=== PATIENT | female | born 1950 | race Caucasian/White ===

== ENCOUNTER 2021-07-05 15:16 | Inpatient (IN) | payer OTHER, MEDICARE ==
[~2021-07-05] VITALS: Ht 157.5 cm; Wt 81.8 kg
[2021-07-05] MEDS ORDERED: OMEP10CASR PO (15:23)
[2021-07-05] MEDS ORDERED: FOSA70TA PO (15:23)
[2021-07-05] MEDS ORDERED: CHLO125TA (15:23)
--- NOTE | 2021-07-05 16:09 | REP ---
INDICATION: fell. COMPARISON: Right tibia fibula today. TECHNIQUE: Five views provided. FINDINGS: A vertically oriented intra-articular fracture extending from the proximal metadiaphysis of the tibia into the lateral tibial plateau at the level of the lateral tibial spine. There is a suprapatellar effusion. I do not see narrowing of any of the joint compartments. There are marginal osteophytes at all joint margins. No medial compartment fracture. Femoral condyles and patella show no fracture. Proximal fibula intact. IMPRESSION: 1. Vertically oriented fracture through the proximal tibial metadiaphysis to the lateral tibial plateau just lateral to the lateral tibial spine. There is a joint effusion, some distraction of the major fragments but no a definite calcific loose body, subluxation or dislocation. Proximal fibula, distal femur and patella intact. <Electronically signed by Lucian Barlow > 07/05/21 [id number]
--- NOTE | 2021-07-05 16:11 | REP ---
INDICATION: fell. COMPARISON: Right knee this date. TECHNIQUE: Four views FINDINGS: There is a fracture vertically oriented through the proximal tibial metadiaphysis to the lateral tibial plateau just lateral to the lateral tibial spine some distraction of the fragments noted. There is a joint effusion. No definite loose body. No joint space narrowing. Tricompartment degenerative spurring noted. The fibula is without a fracture remainder of the tibia shows no fracture of its proximal or distal shaft ankle grossly preserved with some degenerative changes in the posterior subtalar joint and anterior margin of the ankle. IMPRESSION: 1. Fracture vertically oriented through the proximal tibial metadiaphysis to the lateral tibial plateau, just lateral to the lateral tibial spine. Joint effusion. Some distraction of fragments but no loose body, other fractured bones, subluxation or dislocation. <Electronically signed by Lucian Barlow > 07/05/21 [id number]
[2021-07-05] MEDS ORDERED: MORPHINE 4 MG/ML 1ML VIAL/SYRINGE (J2270) IV ONE (16:35)
[2021-07-05] MEDS ORDERED: ONDANSETRON 4MG/2ML VIAL IV PRN (17:30)
[2021-07-05] MEDS ORDERED: MORPHINE 2 MG/ML 1ML VIAL (J2270) IV PRN (17:30)
--- NOTE | 2021-07-05 17:45 | HPEPDOC ---
[facility] Medical History & Physical Date of Admission Jul 05, 2021 Date of Service: Jul 05, 2021 Attending Physician: ANNA DIAZ DO History and Physical CHIEF COMPLAINT: Right knee pain HISTORY OF PRESENT ILLNESS: Patient is a 71-year-old female presented to the emergency department after falling at work and hurting her right knee. 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 Patient felt 2 pops in her right knee when she fell. Patient denies hitting her knee but her knee began to swell up and she was unable to get up due to the pain. Patient states she crawled out into the hallway and was able to get help. Patient then reported that emergency department where x-rays show the patient had a tibial plateau fracture. Patient was in her usual state of health prior to the fall and states that she did not have any head injury for the fall. Patient states that the pain is constant and the swelling has become worse since she initially came to the hospital. PAST MEDICAL HISTORY: 1. Osteoporosis. 2. GERD. 3. Patient states she has a remote history of hypertension but checks her blood pressure every day and it is normal PAST SURGICAL HISTORY: 1. Left ankle fracture surgery 2. Splenectomy SOCIAL HISTORY: Patient denies smoking cigarettes, doing illicit drugs, or drink alcohol FAMILY HISTORY: Patient denies any family history on her side of the family. Patient denies any history of hypertension diabetes or heart disease ALLERGIES: Please see below. REVIEW OF SYSTEMS: General: Patient denies fevers HEENT: Patient denies headaches Cardiovascular: Patient denies chest pain Respiratory: Patient denies shortness of breath, cough GI: Patient denies abdominal pain, nausea, vomiting, diarrhea : Patient denies increased frequency or pain with urination Extremities: Patient reports pain swelling right knee as above Neurological: Patient denies numbness or tingling in legs Skin: Patient denies any new rashes or lesions. Hematologic: Patient denies any easy bruising. Lymphatic: Patient denies any lumps lumps or bumps in neck, axilla, or groin HOME MEDICATIONS: Please see below. PHYSICAL EXAMINATION: VITAL SIGNS: Temperature 95.8, pulse 62, respiratory rate 18, blood pressure 122/58, pulse oximetry 99% on room air. General: Alert and oriented female patient who was laying on the stretcher when I walked in. Patient not appear to be in any acute distress. HEENT: Normocephalic, atraumatic, moist mucous membranes. Neck: No lymphadenopathy or thyromegaly Cardiac: Regular rate and rhythm, no murmurs, normal S1, normal S2 Pulm: Clear to auscultation bilaterally. No wheezes, rhonchi, rales Abd: Nondistended, nontender to palpation, normal bowel sounds Ext: Patient in knee immobilizer in place. Patient had swelling over the right knee. No erythema, there is tenderness to touch over the distal portion of the right knee joint. Patient has intense pain to moving her leg. Patient is neurovascularly intact distal to the injury Neuro: Patient was able to move all 4 extremities on command and reported equal sensation light touch in all 4 extremities. Skin: Skin of the head, neck, upper and lower extremities was examined did not show any evidence of rash or wounds. LABORATORY DATA: See below. IMAGING: X-ray of the right knee performed on 07/05/2021 is reported to show vertically oriented fracture through the proximal tibial metadiaphysis to the lateral tibial plateau just lateral to the lateral tibial spine. There is a joint effusion, some distraction of the major fragments but no definite calcific loose body, subluxation or dislocation. Proximal fibula, distal femur and patella intact. Tibia and fibular x-ray of the right leg performed on 07/05/2021 is reported to show fracture vertically oriented for the proximal tibial metadiaphysis to the lateral tibial plateau, just lateral to the lateral tibial spine. Joint effusion. Some distraction fragments no loose body, other fractured bones, subluxation or dislocation. MICROBIOLOGY: Please see below. ASSESSMENT: 71-year-old female presented to hospital after falling and fracturing her right tibial plateau. . PLAN: 1. Right tibial plateau fracture. Orthopedics will see the patient later today and determine the best course of action. CT of the knee is pending at the time of this dictation. Patient will be held n.p.o. We will await further laboratory studies that have yet to be performed although in review of laboratory studies from February, patient did have a leukocytosis but other laboratory studies were within normal limits. We will see what they are today. 2. GERD. Patient takes omeprazole at home. We will continue this. 3. History of hypertension. Patient states she takes her blood pressure every day at home and it has been normal. Patient states she was on medication in the past but this was stopped as her blood pressure was normal. Patient states her history of hypertension was due to stress. 4. History of acquired asplenia. Patient had a splenectomy but states she has not received any vaccines that are recommended. I did recommend that she gets vaccines once she is discharged in the hospital. 5. DVT prophylaxis: Mechanical due to impending surgery 6. CODE STATUS: Full code Disposition: Patient be admitted for observation and can most likely be discharged once surgery has been completed. I do expect the patient to be discharged after less than 1 midnight stay. Vital Signs Vital Signs Date Time Temp Pulse Resp B/P (MAP) Pulse Ox O2 Delivery O2 Flow Rate FiO2 07/05/21 17:04 07/05/21 16:59 18 99 Room Air 07/05/21 15:17 95.8 62 Home Medications Scheduled Alendronate Sodium (Fosamax) 70 Mg Tablet, 1 TAB PO Q7D in the morning, at least 30 minutes before the first food, beverage, or medication of the day Omeprazole (Omeprazole) 10 Mg Capsule.dr, 20 MG PO DAILY Allergies Coded Allergies: codeine (Verified Allergy, Unknown, 07/05/21) A-FIB/CHADSVASC A-FIB History Current/History of A-Fib/PAF?: No ANNA DIAZ DO Jul 05, 2021 17:45
--- NOTE | 2021-07-05 17:47 | REPVR ---
PROCEDURE INFORMATION: Exam: CT Right Lower Extremity Without Contrast, Knee Exam date and time: 07/05/2021 5:23 PM Age: 71 years old Clinical indication: Injury or trauma; Fall; Fracture, traumatic; Other: Plateau FX; Patella or knee; Right; Additional info: Plateau FX 3d recon please TECHNIQUE: Imaging protocol: CT of the Right lower extremity without contrast was performed. Exam focused on the knee. Axial, coronal and sagittal reformatted images were created and reviewed. 3D-renderin-D post-processed images and/or MIPs were created and reviewed. Radiation optimization: All CT scans at this facility use at least one of these dose optimization techniques: automated exposure control; mA and/or kV adjustment per patient size (includes targeted exams where dose is matched to clinical indication); or iterative reconstruction. COMPARISON: CR Knee, complete RIGHT 07/05/2021 3:41 PM FINDINGS: Bones/joints: Comminuted, displaced fracture along the posteromedial aspect of the lateral tibial plateau, extending to the lateral tibial spine. Comminuted, predominantly sagittal plane component extending to the proximal tibial metaphysis. Approximately 7 mm depression along the articular surface of the lateral tibial plateau. No dislocation. Mild patellofemoral osteoarthrosis. Large lipohemarthrosis. Soft tissues: Mild anterior soft tissue swelling. IMPRESSION: 1. Depressed fracture of the lateral tibial plateau, as described above. 2. Additional findings, as above. Electronically signed by: Colt Lee On 07/05/2021 17:47:18 PM
[2021-07-05 18:10] LABS: BASO # 0.1 10^3/uL (0.0-0.2); BASO % 0.4 % (0.0-1.0); EOS % 0.1 % (0.0-3.0); HEMATOCRIT 47.4 % (36.0-47.0); HEMOGLOBIN 15.4 g/dl (12.0-15.5); LYMPH # 2.4 10^3/uL (1.5-5.0); LYMPH % 11.5 % (24.0-44.0); MEAN CORPUSCULAR HEMOGLOBIN 33.6 pg (27.0-33.0); MEAN CORPUSCULAR HGB CONC 32.5 g/dl (32.0-36.5); MEAN CORPUSCULAR VOLUME 103.3 fl (80.0-96.0); MONO % 4.7 % (2.0-8.0); NEUTROPHILS # 17.6 10^3/uL (1.5-8.5); NEUTROPHILS % 82.8 % (36.0-66.0); PLATELET COUNT, AUTOMATED 734 10^3/uL (150-450); RED BLOOD COUNT 4.59 10^6/uL (4.00-5.40); WHITE BLOOD COUNT 21.3 10^3/uL (4.0-10.0)
[2021-07-05 19:20] LABS: RSV AMPLIFICATION NEGATIVE (NEGATIVE)
[2021-07-05 20:20] VITALS: BP 131/83
[2021-07-05] MEDS: MORPHINE 2 MG/ML 1ML VIAL (J2270) IV PRN (20:39)
[2021-07-05] MEDS ORDERED: OMEP1CAP73 PO (21:05)
[2021-07-05] MEDS ORDERED: HOME MED LIST COMPLETE! XX SCH (21:05)
[2021-07-05] MEDS ORDERED: FOLI1TAB11 PO (21:05)
[2021-07-05] MEDS ORDERED: D5W/0.45% SODIUM CHLORIDE 1,000 ML IV SCH (21:10)
[2021-07-06] MEDS: ACETAMINOPHEN TAB 650MG DOSE (2X325MG) PO PRN ×5 (00:56→21:19)
[2021-07-06] MEDS: MORPHINE 2 MG/ML 1ML VIAL (J2270) IV PRN ×5 (00:56→21:19)
[2021-07-06 06:00] VITALS: BP 138/79
[2021-07-06 07:11] LABS: BLOOD UREA NITROGEN 13 MG/DL (7-18); CARBON DIOXIDE LEVEL 28 MEQ/L (21-32); CHLORIDE LEVEL 108 MEQ/L (98-107); CREATININE FOR GFR 0.79 MG/DL (0.55-1.30); GLOMERULAR FILTRATION RATE > 60.0 (>45); GLUCOSE, FASTING 114 MG/DL (70-100); POTASSIUM SERUM 4.4 MEQ/L (3.5-5.1); SODIUM LEVEL 140 MEQ/L (136-145)
[2021-07-06 07:12] LABS: CALCIUM LEVEL 10.3 MG/DL (8.8-10.2); MAGNESIUM LEVEL 2.4 MG/DL (1.8-2.4)
[2021-07-06 07:19] LABS: HEMATOCRIT 42.8 % (36.0-47.0); HEMOGLOBIN 14.1 g/dl (12.0-15.5); MEAN CORPUSCULAR HEMOGLOBIN 33.7 pg (27.0-33.0); MEAN CORPUSCULAR HGB CONC 32.9 g/dl (32.0-36.5); MEAN CORPUSCULAR VOLUME 102.4 fl (80.0-96.0); PLATELET COUNT, AUTOMATED 658 10^3/uL (150-450); RED BLOOD COUNT 4.18 10^6/uL (4.00-5.40); WHITE BLOOD COUNT 14.3 10^3/uL (4.0-10.0)
--- NOTE | 2021-07-06 08:53 | CR ---
ER CONSULTATION DATE: 07/05/2021 TIME: 6 p.m. CONSULTING SERVICE: Orthopedic Surgery CONSULTING PHYSICIAN: JITENDRA MAYERS MD HISTORY OF PRESENT ILLNESS: This is a 71-year-old female with a right posterolateral tibial plateau fracture sustained after a ground level fall while she was at work. Patient presented with right knee pain, inability to ambulate. Orthopedic Surgery was consulted for further evaluation and treatment. PAST MEDICAL HISTORY: 1. Osteoporosis. 2. GERD. 3. Hypertension. PAST SURGICAL HISTORY: 1. Left ankle fracture ORIF. 2. Splenectomy. SOCIAL HISTORY: Denies smoking cigarettes, IV drugs or drinking alcohol. FAMILY HISTORY: She is a mother and and takes care of a 9-year-old child and a chronically ill . Denies a history of hypertension, diabetes or heart disease. ALLERGIES: Please see Internal Medicine note. REVIEW OF SYSTEMS: A 14 point review of systems was negative unless otherwise described in the HPI above. PHYSICAL EXAMINATION: Alert and oriented to person, time and place. Right knee demonstrates some mild swelling and tenderness to palpation. She was otherwise neurovascularly intact to the right lower extremity. She had no breaks in the skin and pain with axial load. She had 5/5 motor strength in the EHL, FHL, tibialis anterior, gastrocnemius and peroneal musculature. Sensation intact to light touch to the deep and superficial peroneal, sural saphenous and tibial nerve distributions. She had palpable dorsalis pedis and posterior tibial arterial pulse, with brisk capillary refill of the digits. RADIOGRAPHS: Radiographs demonstrate a posterolateral column fracture of the tibial plateau with impaction over 1 cm about the posterolateral aspect. There is also a sagittal split on cross-sectional imaging CT scan. The CT scan demonstrates a posterolateral tibial plateau fracture with over 1 cm depression on the posterolateral aspect of the sagittal split exiting the posterior cortex with plateau widening. IMPRESSION: This is a 71-year-old female with the aforementioned injury which will likely require open reduction internal fixation. PLAN: At this point in time, the patient was admitted for pain control and likely operative intervention. The patient's tibial plateau fracture will likely need to be performed within 10 to 14 days. At this point in time, she has been placed in a knee immobilizer and elevation of the right lower extremity. The patient is candidate for knee spanning external fixation versus open reduction internal fixation. Given the location of the fracture, this may require a posterior approach to the right knee which will require a strong vascular surgeon presence onsite at the hospital. Given the tenuous vascular surgeon situation at the [facility], I will have to determine if this is an appropriate surgery to be performed at the [facility] at this point in time. I will contact the vascular surgeon service to see if they would be available during the possible surgery date if definitive fixation is performed at this institution. She may also be a candidate for transfer as the [facility] may not be equipped to deal with a difficult approach requiring onsite vascular surgeon presence. Further details will emerge in the next 24 hours as I discussed the case with my trauma orthopedic colleagues and the [facility].
[2021-07-06] MEDS: OMEPRAZOLE 20 MG CAP PO SCH (09:13)
[2021-07-06 13:58] VITALS: BP 122/70
--- NOTE | 2021-07-06 18:04 | IPNPDOC ---
Text Note Date of Service The patient was seen on 07/06/21. NOTE Subjective: Patient is 71-year-old female presented the emergency department after falling and fracturing her right tibial plateau. Patient states that she is still in pain. Patient is doing okay with the knee immobilizer. Patient states that she was able to eat this morning and was feeling little bit better. After that. Patient denies any other complaints at this time. Review of systems: General: Patient denies fevers HEENT: Patient denies headaches Cardiovascular: Patient denies chest pain Respiratory: Patient denies shortness of breath, cough GI: Patient denies abdominal pain, nausea, vomiting, diarrhea : Patient denies increased frequency or pain with urination Extremities: Patient reports pain in right knee as above Neurological: Patient denies numbness or tingling in legs Physical exam: Vitals: See below General: Alert and oriented female patient who was laying in bed when I walked in. Patient not appear to be in any acute distress. HEENT: Normocephalic, atraumatic, moist mucous membranes. Neck: No lymphadenopathy or thyromegaly Cardiac: Regular rate and rhythm, no murmurs, normal S1, normal S2 Pulm: Clear to auscultation bilaterally. No wheezes, rhonchi, rales Abd: Nondistended, nontender to palpation, normal bowel sounds Ext: No edema bilateral lower extremities. Patient is neurovascularly intact distal to the right knee injury. There is pain to palpation of the right knee. Labs: See below Imaging: CT of the right knee without contrast performed on 07/05/2021 was reported to show comminuted, displaced fracture along the posterior medial aspect of the lateral tibial plateau, extending to the lateral tibial spine. Comminuted, predominantly sagittal plane component extending to the proximal tibial metaphysis. Approximately 7 mm depression along the articular surface of the lateral tibial plateau. No dislocation. Mild patellofemoral osteoarthrosis. Assessment/plan: 71-year-old female presented to hospital after falling and fracturing her right tibial plateau 1. Right tibial plateau fracture. Orthopedics saw the patient and is still in the process of figuring out exactly what surgery will need to be performed and if the surgery can be performed at [facility]. We should know more tomorrow morning. Continue with pain control. 2. GERD. Patient takes omeprazole at home. Continue. 3. History of hypertension. Normotensive here. 4. History of acquired asplenia. Patient had a splenectomy but states she has not received any vaccinations that are recommended. I did recommend the patient get these vaccines once discharged in the hospital. DVT Prophylaxis: Mechanical Disposition: Pending surgery VS,Fishbone, I+O VS, Fishbone, I+O Laboratory Tests 07/06/21 06:39 Vital Signs Date Time Temp Pulse Resp B/P (MAP) Pulse Ox O2 Delivery O2 Flow Rate FiO2 07/06/21 16:12 18 07/06/21 16:02 Room Air 07/06/21 13:58 97.5 64 122/70 (87) 93 I&O- Last 24 Hours up to 6 AM 07/06/21 06:00 Intake Total 0 ml Output Total 0 ml Balance 0 ml ANNA DIAZ DO Jul 06, 2021 18:04
[2021-07-06 22:00] VITALS: BP 118/63
[2021-07-07] MEDS: MORPHINE 2 MG/ML 1ML VIAL (J2270) IV PRN ×2 (02:03→07:36)
[2021-07-07 06:00] VITALS: BP 123/73
[2021-07-07] MEDS: OMEPRAZOLE 20 MG CAP PO SCH (07:36)
[2021-07-07] MEDS: ACETAMINOPHEN TAB 650MG DOSE (2X325MG) PO PRN ×2 (07:36→21:13)
[2021-07-07] MEDS ORDERED: NORCO, ANEXSIA 5/325MG TABLET (HYDROcodone/ACETAMINOPHEN) PO PRN (08:05)
[2021-07-07] MEDS: DOCUSATE SODIUM 100MG CAPSULE PO SCH ×2 (08:54→20:33)
--- NOTE | 2021-07-07 12:26 | IPNPDOC ---
Text Note Date of Service The patient was seen on 07/07/21. NOTE Patient is resting in bed. States she is still having pain but it has improved since being switched to Percocet. She states that her immobilizer feels a little loose. The proximal end of the immobilize was snugged which helped to lessen her pain. Denies chest pain or shortness of breath. NVI to light touch to right foot, able to move ankle and toes. Palpable DP and PT. Overall she is doing well and is eager to have her surgery. VS,Fishbone, I+O VS, Fishbone, I+O Vital Signs Date Time Temp Pulse Resp B/P (MAP) Pulse Ox O2 Delivery O2 Flow Rate FiO2 07/07/21 07:36 17 07/07/21 06:00 98.7 77 123/73 (90) 94 Room Air I&O- Last 24 Hours up to 6 AM 07/07/21 06:00 Intake Total 2180 ml Balance 2180 ml LUIS FERNANDO BERRIOS Jul 07, 2021 12:22
[2021-07-07] MEDS: NORCO, ANEXSIA 5/325MG TABLET (HYDROcodone/ACETAMINOPHEN) PO PRN ×2 (12:27→18:49)
--- NOTE | 2021-07-07 13:16 | IPNPDOC ---
Text Note Date of Service The patient was seen on 07/07/21. NOTE Subjective: Patient is a 71-year-old female who presented to the emergency department after falling and fracturing her right tibial plateau. Patient states that she is still in pain but is doing okay with a knee immobilizer. Patient states he was able to eat this morning feeling little bit better. Patient says that the morphine does help but it does not last that long. Patient is eager to have her surgery performed. Review of systems: General: Patient denies fevers HEENT: Patient denies headaches Cardiovascular: Patient denies chest pain Respiratory: Patient denies shortness of breath, cough GI: Patient denies abdominal pain, nausea, vomiting, diarrhea : Patient denies increased frequency or pain with urination Extremities: Patient ports pain in the right knee as above Neurological: Patient denies numbness or tingling in legs Physical exam: Vitals: See below General: Alert and oriented female patient who was laying in bed when I walked in. Patient did not appear to be in any acute distress. HEENT: Normocephalic, atraumatic, moist mucous membranes. Neck: No lymphadenopathy or thyromegaly Cardiac: Regular rate and rhythm, no murmurs, normal S1, normal S2 Pulm: Clear to auscultation bilaterally. No wheezes, rhonchi, rales Abd: Nondistended, nontender to palpation, normal bowel sounds Ext: No edema bilateral lower extremities. Pain over the right knee joint. Neurovascularly intact distal to the right knee injury. Labs: See below Imaging: No new imaging is been performed Assessment/plan: 71-year-old female presented to hospital with the following fracturing her right tibial plateau. 1. Right tibial plateau fracture. Orthopedics saw the patient was still in the process of figuring out when exactly what surgery would be. It does appear that the surgery may be on Sunday at [facility]. Continue pain control. Pain control has been switched from IV morphine to p.o. Percocet at this time. 2. GERD. Patient takes metoprolol at home. We will continue this. 3. History of hypertension. Continue home amlodipine. 4. History of acquired asplenia. Patient had a splenectomy but she states she has not received any vaccinations that are recommended. I did recommend the patient receive these vaccines when she is discharged in the hospital and did offer that were given before she is discharged. DVT Prophylaxis: Mechanical Disposition: Pending surgery VS,Fishbone, I+O VS, Fishbone, I+O Vital Signs Date Time Temp Pulse Resp B/P (MAP) Pulse Ox O2 Delivery O2 Flow Rate FiO2 07/07/21 12:57 17 07/07/21 06:00 98.7 77 123/73 (90) 94 Room Air I&O- Last 24 Hours up to 6 AM 07/07/21 06:00 Intake Total 2180 ml Balance 2180 ml ANNA DIAZ DO Jul 07, 2021 13:16
[2021-07-07 14:00] VITALS: BP 102/56
[2021-07-07 22:00] VITALS: BP 126/69
[2021-07-08] MEDS: NORCO, ANEXSIA 5/325MG TABLET (HYDROcodone/ACETAMINOPHEN) PO PRN ×4 (00:52→20:00)
[2021-07-08 04:18] VITALS: BP 134/83
[2021-07-08 06:34] LABS: MEAN CORPUSCULAR HEMOGLOBIN 33.8 pg (27.0-33.0); MEAN CORPUSCULAR HGB CONC 32.6 g/dl (32.0-36.5); MEAN CORPUSCULAR VOLUME 103.9 fl (80.0-96.0); PLATELET COUNT, AUTOMATED 620 10^3/uL (150-450); RED BLOOD COUNT 4.14 10^6/uL (4.00-5.40); WHITE BLOOD COUNT 12.8 10^3/uL (4.0-10.0)
[2021-07-08 06:58] LABS: BLOOD UREA NITROGEN 14 MG/DL (7-18); CALCIUM LEVEL 10.2 MG/DL (8.8-10.2); CARBON DIOXIDE LEVEL 31 MEQ/L (21-32); CHLORIDE LEVEL 105 MEQ/L (98-107); CREATININE FOR GFR 0.92 MG/DL (0.55-1.30); GLOMERULAR FILTRATION RATE > 60.0 (>45); GLUCOSE, FASTING 100 MG/DL (70-100); MAGNESIUM LEVEL 2.4 MG/DL (1.8-2.4); SODIUM LEVEL 140 MEQ/L (136-145)
[2021-07-08] MEDS: OMEPRAZOLE 20 MG CAP PO SCH (08:02)
[2021-07-08] MEDS: DOCUSATE SODIUM 100MG CAPSULE PO SCH ×2 (08:03→21:14)
[2021-07-08 14:00] VITALS: BP 144/60
--- NOTE | 2021-07-08 17:33 | IPNPDOC ---
Text Note Date of Service The patient was seen on 07/08/21. NOTE Subjective: Patient is a 71-year-old female presented the emergency department for falling and fracturing her right tibial plateau. Patient is still in pain but the hydrocodone is doing better. Patient is also doing okay with a knee immobilizer. Patient will be having her surgery performed tomorrow and is eager to have her surgery done. Review of systems: General: Patient denies fevers HEENT: Patient denies headaches Cardiovascular: Patient denies chest pain Respiratory: Patient denies shortness of breath, cough GI: Patient denies abdominal pain, nausea, vomiting, diarrhea : Patient denies increased frequency or pain with urination Extremities: Patient reports pain in right leg as above Neurological: Patient denies numbness or tingling in legs Physical exam: Vitals: See below General: Alert and oriented female patient who was laying in bed when I walked i n. Patient not appear to be in any acute distress. HEENT: Normocephalic, atraumatic, moist mucous membranes. Neck: No lymphadenopathy or thyromegaly Cardiac: Regular rate and rhythm, no murmurs, normal S1, normal S2 Pulm: Clear to auscultation bilaterally. No wheezes, rhonchi, rales Abd: Nondistended, nontender to palpation, normal bowel sounds Ext: No edema bilateral lower extremities, minimal swelling over the right knee, there is pain to palpation over the right knee. Neurovascularly intact distal to the right knee injury. Labs: See below Imaging: No new imaging is been performed Assessment/plan: 71-year-old female presented to the hospital with a tibial plateau fracture on the right side. 1. Right tibial plateau fracture. Orthopedic saw the patient and will be performing surgery tomorrow to correct the fracture. Once patient works from PT, patient be discharged after he clears PT. 2. GERD. Takes omeprazole at home. Continue this. 3. History of hypertension. Continue amlodipine. 4. History of acquired asplenia. Patient has had a splenectomy but states she has not received any vaccinations that are recommended. I did recommend the patient receive these vaccines when she is discharged from the hospital or we can give them before she is discharged. DVT Prophylaxis: Mechanical due to pending surgery Disposition: Pending surgical procedure and clearance from PT after surgery. VS,Fishbone, I+O VS, Fishbone, I+O Laboratory Tests 07/08/21 06:16 Vital Signs Date Time Temp Pulse Resp B/P (MAP) Pulse Ox O2 Delivery O2 Flow Rate FiO2 07/08/21 14:39 16 Room Air 07/08/21 14:00 98.2 76 144/60 (60) 98 I&O- Last 24 Hours up to 6 AM 07/08/21 06:00 Intake Total 1320 ml Balance 1320 ml ANNA DIAZ DO Jul 08, 2021 17:33
[2021-07-08 21:56] VITALS: BP 124/75
[2021-07-09] VITALS (7 sets, daily range): BP systolic 123–157; BP diastolic 75–83
[2021-07-09] MEDS: NORCO, ANEXSIA 5/325MG TABLET (HYDROcodone/ACETAMINOPHEN) PO PRN ×2 (02:43→20:02)
[2021-07-09] MEDS ORDERED: ROCURONIUM BROMIDE 50 MG/5 ML VIAL As Ordered ONE ×2 (07:46→12:48)
[2021-07-09] MEDS ORDERED: propofoL 200 MG/20 ML VIAL As Ordered ONE (07:46)
[2021-07-09] MEDS ORDERED: LIDOCAINE 2% 100MG/5ML SDV (FOR ANES.) As Ordered ONE (07:46)
[2021-07-09] MEDS ORDERED: MIDAZOLAM INJ 2MG/2ML VIAL (J2250 PER 1MG) As Ordered ONE (07:47)
[2021-07-09] MEDS ORDERED: fentaNYL 250 MCG/5 ML INJECTION (J3010) As Ordered ONE (07:47)
[2021-07-09] MEDS ORDERED: ceFAZolin 2 GM/D5W 50 ML IV BAG (J0690 PER 500MG) As Ordered ONE (08:18)
[2021-07-09] MEDS ORDERED: TRANEXAMIC ACID 100 MG/ML 10ML VIAL As Ordered ONE ×2 (08:19→14:23)
[2021-07-09 08:26] LABS: HEMATOCRIT 41.7 % (36.0-47.0); HEMOGLOBIN 13.5 g/dl (12.0-15.5); MEAN CORPUSCULAR HEMOGLOBIN 33.7 pg (27.0-33.0); MEAN CORPUSCULAR HGB CONC 32.4 g/dl (32.0-36.5); PLATELET COUNT, AUTOMATED 640 10^3/uL (150-450); RED BLOOD COUNT 4.01 10^6/uL (4.00-5.40); WHITE BLOOD COUNT 12.3 10^3/uL (4.0-10.0)
[2021-07-09 08:52] LABS: BLOOD UREA NITROGEN 15 MG/DL (7-18); CALCIUM LEVEL 10.3 MG/DL (8.8-10.2); CARBON DIOXIDE LEVEL 33 MEQ/L (21-32); CHLORIDE LEVEL 106 MEQ/L (98-107); CREATININE FOR GFR 0.82 MG/DL (0.55-1.30); GLOMERULAR FILTRATION RATE > 60.0 (>45); GLUCOSE, FASTING 85 MG/DL (70-100); MAGNESIUM LEVEL 2.3 MG/DL (1.8-2.4); POTASSIUM SERUM 4.7 MEQ/L (3.5-5.1); SODIUM LEVEL 141 MEQ/L (136-145)
[2021-07-09] MEDS: DOCUSATE SODIUM 100MG CAPSULE PO SCH ×2 (09:00→20:02)
[2021-07-09] MEDS: OMEPRAZOLE 20 MG CAP PO SCH (09:00)
[2021-07-09] MEDS ORDERED: HYDROmorphone HCL 2 MG/ML 1ML VIAL As Ordered ONE (11:54)
[2021-07-09] MEDS ORDERED: LABETALOL 100MG/20ML VIAL As Ordered ONE (12:06)
[2021-07-09] MEDS ORDERED: VANCOMYCIN 1000MG/20ML VIAL As Ordered ONE (12:30)
--- NOTE | 2021-07-09 14:08 | IPNPDOC ---
Text Note Date of Service The patient was seen on 07/09/21. NOTE Subjective: Patient is a 71-year-old female presented the emergency department for falling and fracturing her right tibial plateau. Patient is still in pain but the hydrocodone is doing better. Patient is also doing okay with knee immobilizer. Patient is going down for surgery later on today. Patient is feeling otherwise well today. Review of systems: General: Patient denies fevers HEENT: Patient denies headaches Cardiovascular: Patient denies chest pain Respiratory: Patient denies shortness of breath, cough GI: Patient denies abdominal pain, nausea, vomiting, diarrhea : Patient denies increased frequency or pain with urination Extremities: Patient denies swelling or pain in extremities Neurological: Patient denies numbness or tingling in legs Physical exam: Vitals: See below General: Alert and oriented female patient who was laying in bed when I walked in. Patient not appear to be in any acute distress. HEENT: Normocephalic, atraumatic, moist mucous membranes. Neck: No lymphadenopathy or thyromegaly Cardiac: Regular rate and rhythm, no murmurs, normal S1, normal S2 Pulm: Clear to auscultation bilaterally. No wheezes, rhonchi, rales Abd: Nondistended, nontender to palpation, normal bowel sounds Ext: No edema bilateral lower extremities, minimal swelling over the right knee, there is pain to palpation over the right knee. Neurovascularly intact distal to the right knee injury Labs: See below Imaging: No new imaging is been performed Assessment/plan: 71-year-old female presented to the hospital with right tibial plateau fracture. 1. Right tibial plateau fracture. Orthopedics has seen the patient will be performing surgery today. Once patient works with PT, we can dispo the patient to rehab versus home with home PT. 2. GERD. Continue home omeprazole. 3. Hypertension. Continue amlodipine. 4. History of acquired asplenia. Patient has had a splenectomy but states she has not received any vaccinations that are recommended. I did recommend patient receive these vaccines and when she is discharged in the hospital or we can give them before she is discharged. DVT Prophylaxis: Mechanical due to surgery Disposition: Pending surgical procedure and clearance after PT from surgery. VS,Benignobone, I+O VS, Fishbone, I+O Laboratory Tests 07/09/21 07:16 Vital Signs Date Time Temp Pulse Resp B/P (MAP) Pulse Ox O2 Delivery O2 Flow Rate FiO2 07/09/21 06:00 97.7 73 18 123/76 (92) 95 Room Air I&O- Last 24 Hours up to 6 AM 07/09/21 06:00 Intake Total 900 ml Output Total 0 ml Balance 900 ml ANNA DIAZ DO Jul 09, 2021 14:08
[2021-07-09] MEDS ORDERED: dexameTHASONE 4 MG/ML 1ML VIAL (J1100 PER 1MG) As Ordered ONE (14:13)
[2021-07-09] MEDS ORDERED: ACETAMINOPHEN 1000MG 100ML IV BTL (OFIRMEV) (J0131 PER 10MG) As Ordered ONE (14:13)
[2021-07-09] MEDS ORDERED: KETOROLAC 60MG 2ML VIAL As Ordered ONE (14:13)
[2021-07-09] MEDS ORDERED: METOCLOPRAMIDE INJ 10MG/2ML VIAL (J2765 PER 1) As Ordered ONE (14:14)
[2021-07-09] MEDS ORDERED: ONDANSETRON 4MG/2ML VIAL As Ordered ONE (14:14)
[2021-07-09] MEDS ORDERED: SUGAMMADEX SODIUM 500 MG/5 ML VIAL (BRIDION) As Ordered ONE (14:19)
--- NOTE | 2021-07-09 14:50 | REP ---
INDICATION: INTRA-OP RIGHT TIBIAL PLATEAU ORIF. COMPARISON: July 05, 2021. TECHNIQUE: Fifteen views. 39 seconds of fluoroscopy time is reported. FINDINGS: A sequence of 15 last image hold fluoroscopically obtained spot radiographs of the right knee document open reduction internal fixation for proximal tibial fracture. IMPRESSION: Procedural imaging. <Electronically signed by Harley Tobar > 07/09/21 [id number]
[2021-07-09] MEDS ORDERED: LR 1,000 ML IV SCH (15:45)
[2021-07-09] MEDS ORDERED: fentaNYL 100 MCG/2 ML INJECTION (J3010) IV PRN (15:45)
[2021-07-09] MEDS ORDERED: ONDANSETRON 4MG/2ML VIAL IV PRN (15:45)
[2021-07-09] MEDS ORDERED: ceFAZolin SOD 2 GM in IV 1 EA IV ONE (15:50)
[2021-07-09] MEDS ORDERED: LABETALOL 100MG/20ML VIAL IV PRN (15:50)
[2021-07-09] MEDS: oxyCODONE 5MG TAB PO PRN ×2 (15:50→16:34)
[2021-07-09] MEDS: HYDROMORPHONE HCL 0.5 MG/ 0.5 ML SYRINGE (J1170 PER 1) IV PRN ×2 (15:55→16:10)
[2021-07-09] MEDS ORDERED: NS 1,000 ML IV SCH (18:00)
[2021-07-10 02:00] VITALS: BP 149/76
[2021-07-10] MEDS: NORCO, ANEXSIA 5/325MG TABLET (HYDROcodone/ACETAMINOPHEN) PO PRN ×3 (04:46→17:07)
[2021-07-10 06:00] VITALS: BP 147/77
--- NOTE | 2021-07-10 07:03 | RO ---
OPERATIVE NOTE DATE OF OPERATION: 07/09/2021 TIME: 11:30 a.m. PREOPERATIVE DIAGNOSIS: Right tibial plateau fracture, split depression variant. POSTOPERATIVE DIAGNOSIS: Right tibial plateau fracture, split depression variant. NAME OF OPERATION: 1. Right tibial plateau open reduction and internal fixation. 2. Diagnostic arthroscopy. SURGEON: Giorgio Humphries MD CLINIC COORDINATOR: None. SUPERVISING ATTENDING: Giorgio Humphries MD FINDINGS: The patient had a depressed, lateral column osteochondral fragment of approximately 1 x 1 cm depressed approximately 1.5 cm with a sagittal split of the lateral condyle. The patient also had an intact lateral meniscus as well as medial meniscus. INDICATIONS: This was a 71-year-old female with the aforementioned diagnosis sustained after a ground-level fall when she was at work. The patient initially presented with right knee pain, inability to ambulate. The patient presented to [facility] on the June, where I initially saw the patient, placed her in a knee immobilizer and indicated her for the above mentioned surgery for unsrtable knee. ANESTHESIA: GETA. TOURNIQUET TIME: 120 minutes. ESTIMATED BLOOD LOSS: 300 mL. IV FLUIDS: Please see anesthesia report. IV ANTIBIOTICS: Please see anesthesia report. IMPLANTS: Synthes. CULTURES: None. SPECIMENS: None. DESCRIPTION OF PROCEDURE: The patient was met in the preoperative holding area where the patient's operative extremity was signed, the patient's consent was confirmed to be correct, and the patient's identity was confirmed to be correct. The patient was then transported to the operating theater where she was placed in the supine position with a bone foam under the right lower extremity. A safety strap secured the patient to the bed. All bony prominences were well padded. The contralateral lower extremity had an SCD placed. A timeout was called to confirm the correct patient, correct operative extremity and correct consent. All staff were in agreement. The patient's leg was draped in the usual sterile fashion. We began the procedure by performing a diagnostic right knee arthroscopy, established an anterolaeral and anteromedial portal and performed a diagnostic arthroscopy of the patient's right knee. I was able to visualize the intact lateral and medial meniscus during the diagnostic arthroscopy. However, tourniquet malfunctioned, made visualization of the ACL and PCL very difficult. I was, however, able to appreciate a large posterolateral osteochondral articular surface depression measuring 1 x 1 cm. After performing tshe diagnostic arthroscopy, I then removed the arthroscopic instrumentation and turned my attention to the anterolateral aspect of the patient's right knee. I marked out my skin incision which was an anterolateral approach to the patient's proximal tibia. Using the distal femur joint line, Gerdy's tubercle and anterior tibial crest as landmarks, I marked out my skin incision. I then exsanguinated the leg and applied the tourniquet at 250 mmHg. I then incised the skin sharply and used meticulous hemostasis to make my way to the iliotibial band of the lateral aspect of the thigh and the tibialis anterior fascia. Once the IT band and the tibialis anterior fascia was identified, this was incised sharply with a scalpel. I then created flaps to the IT band in order to further expose the capsule of the patient's right knee. I incised the fascia of the tibialis anterior musculature. I was able to elevate the proximal aspect of the tibialis anterior musculature off the lateral aspect of the tibia. At this point in time, I had good exposure of the lateral aspect of the proximal tibia as well as the capsule of the lateral aspect of the patient's right knee. I incised the capsule sharply, identified the meniscus which was then tagged with a #2 braided polyethylene suture. It was used to elevate the meniscus in order to better visualize the articular surface of the lateral condyle of the proximal tibia. Once again, I appreciated a 1 x 1 cm depression in the posterolateral aspects of the lateral condyle which was depressed approximately 1.5 cm. I identified the distal extent of the sagittal split of the plateau fracture along the lateral border of the proximal tibia. At this point in time, I then made a corticotomy in the lateral aspect of the tibia just proximal to the distal extent of the fracture and used bone tamps in order to elevate the depessed osteochondral fragment using fluoroscopic guidance in AP and lateral views. Once I was able to appreciate the zoroastrianism of the lateral joint line on lateral view and AP view, I then used the Jaskaran Tong ysape-so-oatak bone-reducing clamps in order to depress against the sagittal proximal tibial split fracture line. I then removed the Jaskaran Tongs and applied a proximal tibial plate into position and once again applied the ndbza-ow-cfswi bone-reducing Jaskaran Tong clamps into position so that I was obtaining compression in the sagittal plane against the split fracture line. I then secured the plate to the bone using K-wires. I placed an axillary cortical screw on the plate in order to provide buttress effect against the fracture for the distal extent of the fracture which maintaining my [id number] bone-reducing clamps in position. I appreciated narrowing of the previously widened proximal tibia to its [place] width. I then placed two thin K-wires across the subchondral region of the proximal lateral tibia and placed 3.0 mm fully threaded cannulated screws over these wires which would be used as rafting screws. These were centered on the AP and lateral views and provided good rafting effect of the previously depressed osteochondral fragment. I then placed three additional cortical screws within the plate using a percutaneous incision for the most distal screw and perfect craig technique using the fluorscope in order to place this most distal screw. At this point in time, I had four cortical screws in position, securing the plate to the bone. I obtained an AP and lateral view to ensure I was satisfied with the fracture reduction as well as the implant placement. Once I had secured the four cortical screws, I placed calcium triphosphate bone cement within the bone void which was made by my bone tamping of the lateral osteochondral fragment. I then placed four proximal locking screws within the plate for additional fixation as well as rafting of the previously depressed osteochondral fragment. At this piont in time, I removed my [place] [id number] bone-reducing clamp. I took final fluoroscopic imaging, demonstrating I was satisfied with both the elevation of the previously depressed osteochondral fragment of the lateral column as well as compression against the previous sagittal split of the proximal tibia. I then copiously irrigated the surgical site using three liters of normal saline. I placed one gram of vancomycin powder on the proximal tibial plate. I closed the fascia of the tibialis anterior musculature using #2 Vicryl and closed the IT band to the lateral side using an 0 Stratafix barbed suture. I then reapproximated the meniscotibial ligament of the lateral meniscus using the previously placed stay stitch through the IT bands. This was a #2 braided polyethylene suture. I closed the dermal layer using a 2-0 Vicryl, closed the skin using an uninterrupted 3-0 nylon suture in an alternating mattress fashion. I placed Xeroform over the surgical incision followed by 4x4 gauze and Webril. It was then followed by Jose bandage and the patient was placed in a knee immobilizer. The patient was then extubated without complication and transported to the postanesthesia care unit. At this point in time, the patient's care will be transferred to the internal medicine team. I recommend the internal medicine team provide 81 mg of aspirin daily postop day for 30 days or the equivalent for DVT chemoprophylaxis. She will be nonweightbearing for three months. However, I do encourage early range of motion per the tibial plateau open reduction and internal fixation rehabilitative protocol. Her pain medication will be provided by her hospitalist. She will return to the [facility] orthopedic clinic on the June, to Dr. Murillo for postoperative wound check, a consult for his knee brace at [facility] and a consult for physical therapy. We will discuss inpatient versus outpatient rehabilitative services with social work group here at [facility]. I will see the patient again at her six week postoperative visit on the July, or the July, or I will get repeat radiographs on the patient's injury.
[2021-07-10 07:12] LABS: HEMATOCRIT 34.3 % (36.0-47.0); MEAN CORPUSCULAR HEMOGLOBIN 33.8 pg (27.0-33.0); MEAN CORPUSCULAR HGB CONC 32.7 g/dl (32.0-36.5); MEAN CORPUSCULAR VOLUME 103.6 fl (80.0-96.0); PLATELET COUNT, AUTOMATED 558 10^3/uL (150-450); RED BLOOD COUNT 3.31 10^6/uL (4.00-5.40)
[2021-07-10 07:19] LABS: BLOOD UREA NITROGEN 17 MG/DL (7-18); CALCIUM LEVEL 10.3 MG/DL (8.8-10.2); CARBON DIOXIDE LEVEL 31 MEQ/L (21-32); CHLORIDE LEVEL 108 MEQ/L (98-107); CREATININE FOR GFR 0.92 MG/DL (0.55-1.30); GLOMERULAR FILTRATION RATE > 60.0 (>45); GLUCOSE, FASTING 107 MG/DL (70-100); MAGNESIUM LEVEL 2.2 MG/DL (1.8-2.4); POTASSIUM SERUM 4.9 MEQ/L (3.5-5.1); SODIUM LEVEL 141 MEQ/L (136-145)
[2021-07-10 07:51] LABS: HEMOGLOBIN 11.2 g/dl (12.0-15.5)
[2021-07-10] MEDS: DOCUSATE SODIUM 100MG CAPSULE PO SCH ×2 (08:52→20:14)
[2021-07-10] MEDS: OMEPRAZOLE 20 MG CAP PO SCH (08:52)
--- NOTE | 2021-07-10 10:28 | IPNPDOC ---
Text Note Date of Service The patient was seen on 07/10/21. NOTE Subjective: Patient is a 71-year-old female was in the emergency room after falling fracturing her right tibial plateau. Patient had corrective surgery performed yesterday. Patient says that she is feeling better but is still having some pain. Patient did well with the surgery is no complaint of any complication at this time. Review of systems: General: Patient denies fevers HEENT: Patient denies headaches Cardiovascular: Patient denies chest pain Respiratory: Patient denies shortness of breath, cough GI: Patient denies abdominal pain, nausea, vomiting, diarrhea : Patient denies increased frequency or pain with urination Extremities: Patient reports pain in her right lower extremity. Neurological: Patient denies numbness or tingling in legs Physical exam: Vitals: See below General: Alert and oriented female patient who was slightly above I walked in the room. Patient not appear to be in any acute distress. HEENT: Normocephalic, atraumatic, moist mucous membranes. Neck: No lymphadenopathy or thyromegaly Cardiac: Regular rate and rhythm, no murmurs, normal S1, normal S2 Pulm: Clear to auscultation bilaterally. No wheezes, rhonchi, rales Abd: Nondistended, nontender to palpation, normal bowel sounds Ext: No edema bilateral lower extremities, right knee was wrapped in Jose bandage wrap with knee immobilizer over. Patient was neurovascularly intact distal to the injury Labs: See below Imaging: No new imaging is been performed other than intraoperative guided fluoroscopy. Assessment/plan: 71-year-old female presented to hospital with right tibial plateau fracture. 1. Right tibial plateau fracture. Orthopedics has seen the patient and perf ormed surgery yesterday. Patient will need to work with physical therapy. Patient is nonweightbearing for 3 months. Patient will need to follow-up with Dr. Murillo on 07/14/2021 in the orthopedic clinic. Patient will need to follow- up in [address] Humphries for repeat imaging. Continue pain control and patient work with physical therapy and we will decide disposition of inpatient versus outpatient physical therapy. 2. GERD. Continue home omeprazole. 3. Hypertension. Continue amlodipine. 4. History of acquired asplenia. Patient had splenectomy but states she has not received any vaccinations that are recommended. I did recommend the patient receive these vaccines once she is discharged or prior to leaving the hospital. DVT Prophylaxis: Mechanical and aspirin per orthopedic surgery Disposition: Pending physical therapy disposition for inpatient versus outpatient rehab Noemi SERVIN, I+O VSNoemi I+O Laboratory Tests 07/10/21 06:31 Vital Signs Date Time Temp Pulse Resp B/P (MAP) Pulse Ox O2 Delivery O2 Flow Rate FiO2 07/10/21 06:00 98.3 79 18 147/77 (100) 93 Room Air 07/10/21 02:00 1.0 I&O- Last 24 Hours up to 6 AM 07/10/21 06:00 Intake Total 2515 ml Output Total 1800 ml Balance 715 ml ANNA DIAZ DO Jul 10, 2021 10:28
[2021-07-10] MEDS ORDERED: MORPHINE 2 MG/ML 1ML VIAL (J2270) IV PRN (12:15)
[2021-07-10 14:00] VITALS: BP 148/84
[2021-07-10] MEDS: ACETAMINOPHEN TAB 650MG DOSE (2X325MG) PO PRN (16:17)
[2021-07-10 21:37] VITALS: BP 145/72
[2021-07-11] MEDS: NORCO, ANEXSIA 5/325MG TABLET (HYDROcodone/ACETAMINOPHEN) PO PRN ×4 (00:21→20:12)
[2021-07-11 06:00] VITALS: BP 160/86
[2021-07-11 07:27] LABS: HEMOGLOBIN 11.6 g/dl (12.0-15.5); MEAN CORPUSCULAR HEMOGLOBIN 34.4 pg (27.0-33.0); MEAN CORPUSCULAR HGB CONC 33.1 g/dl (32.0-36.5); MEAN CORPUSCULAR VOLUME 103.9 fl (80.0-96.0); PLATELET COUNT, AUTOMATED 584 10^3/uL (150-450); RED BLOOD COUNT 3.37 10^6/uL (4.00-5.40); WHITE BLOOD COUNT 16.2 10^3/uL (4.0-10.0)
[2021-07-11 07:52] LABS: BLOOD UREA NITROGEN 16 MG/DL (7-18); CALCIUM LEVEL 10.1 MG/DL (8.8-10.2); CARBON DIOXIDE LEVEL 31 MEQ/L (21-32); CHLORIDE LEVEL 105 MEQ/L (98-107); CREATININE FOR GFR 0.77 MG/DL (0.55-1.30); GLOMERULAR FILTRATION RATE > 60.0 (>45); GLUCOSE, FASTING 109 MG/DL (70-100); MAGNESIUM LEVEL 2.4 MG/DL (1.8-2.4); POTASSIUM SERUM 4.9 MEQ/L (3.5-5.1); SODIUM LEVEL 141 MEQ/L (136-145)
[2021-07-11] MEDS: OMEPRAZOLE 20 MG CAP PO SCH (08:14)
[2021-07-11] MEDS: DOCUSATE SODIUM 100MG CAPSULE PO SCH ×2 (08:14→20:11)
[2021-07-11] MEDS: ASPIRIN 81MG ENTERIC TABLET PO SCH (08:14)
--- NOTE | 2021-07-11 12:30 | IPNPDOC ---
Text Note Date of Service The patient was seen on 07/11/21. NOTE Subjective: Patient is a 71-year-old female who presented the emergency room after falling and fracturing her right tibial plateau. Patient had corrective surgery performed Sunday. Patient says that she is still in some pain especially when she moves the leg however, she is doing well at this time. Review of systems: General: Patient denies fevers HEENT: Patient denies headaches Cardiovascular: Patient denies chest pain Respiratory: Patient denies shortness of breath, cough GI: Patient denies abdominal pain, nausea, vomiting, diarrhea : Patient denies increased frequency or pain with urination Extremities: Patient reports pain in the right leg especially when she is moving to use the commode Neurological: Patient denies numbness or tingling in legs Physical exam: Vitals: See below General: Alert and oriented female patient was laying in bed when I walked in. Patient did not appear to be in any acute distress. HEENT: Normocephalic, atraumatic, moist mucous membranes. Neck: No lymphadenopathy or thyromegaly Cardiac: Regular rate and rhythm, no murmurs, normal S1, normal S2 Pulm: Clear to auscultation bilaterally. No wheezes, rhonchi, rales Abd: Nondistended, nontender to palpation, normal bowel sounds Ext: No edema bilateral lower extremities. Right knee is wrapped in Jose bandage wrap with knee immobilizer over. Patient is neuro vascularly intact distal to the injury. Labs: See below Imaging: No new imaging is been performed. Assessment/plan: 71-year-old female presented to the hospital with right tibial plateau fracture. 1. Right tibial plateau fracture. Orthopedics saw the patient perform surgery on 07/09/2021. Patient will need a work physical therapy. Patient is nonweightbearing for 3 months. Patient will need to follow-up with Dr. Murillo on 07/14/2021 in the orthopedic clinic. Patient will need to follow-up in [address] Humphries for repeat imaging. Continue pain control. PT and OT has been ordered. ARU screen has been placed. Decision will need to be made about ARU versus subacute rehab versus home with PT. 2. GERD. Continue omeprazole. 3. Hypertension. Continue amlodipine. 4. History of acquired asplenia. Patient has a history of a splenectomy but states she did not receive any vaccines that are recommended. I did recommend the patient receive these vaccines when she is discharged or prior to leaving the hospital. DVT Prophylaxis: Mechanical and aspirin per orthopedic surgery Disposition: Pending disposition for ARU versus subacute rehab versus home with PT. VS,Fishbone, I+O VS, Fishbone, I+O Laboratory Tests 07/11/21 06:43 Vital Signs Date Time Temp Pulse Resp B/P (MAP) Pulse Ox O2 Delivery O2 Flow Rate FiO2 07/11/21 08:10 16 Room Air 07/11/21 06:00 98.8 72 160/86 (110) 94 07/10/21 02:00 1.0 I&O- Last 24 Hours up to 6 AM 07/11/21 06:00 Intake Total 1740 ml Balance 1740 ml ANNA DIAZ DO Jul 11, 2021 12:30
[2021-07-11 14:00] VITALS: BP 138/74
[2021-07-11 22:00] VITALS: BP 124/97
[2021-07-12] MEDS: NORCO, ANEXSIA 5/325MG TABLET (HYDROcodone/ACETAMINOPHEN) PO PRN ×4 (03:54→23:00)
[2021-07-12 06:00] VITALS: BP 125/74
[2021-07-12 06:10] LABS: HEMATOCRIT 35.3 % (36.0-47.0); HEMOGLOBIN 11.5 g/dl (12.0-15.5); MEAN CORPUSCULAR HGB CONC 32.6 g/dl (32.0-36.5); MEAN CORPUSCULAR VOLUME 104.4 fl (80.0-96.0); PLATELET COUNT, AUTOMATED 632 10^3/uL (150-450); RED BLOOD COUNT 3.38 10^6/uL (4.00-5.40); WHITE BLOOD COUNT 13.7 10^3/uL (4.0-10.0)
[2021-07-12 06:30] LABS: BLOOD UREA NITROGEN 13 MG/DL (7-18); CALCIUM LEVEL 9.8 MG/DL (8.8-10.2); CARBON DIOXIDE LEVEL 32 MEQ/L (21-32); CHLORIDE LEVEL 108 MEQ/L (98-107); CREATININE FOR GFR 0.75 MG/DL (0.55-1.30); GLOMERULAR FILTRATION RATE > 60.0 (>45); GLUCOSE, FASTING 113 MG/DL (70-100); MAGNESIUM LEVEL 2.2 MG/DL (1.8-2.4); POTASSIUM SERUM 4.4 MEQ/L (3.5-5.1); SODIUM LEVEL 142 MEQ/L (136-145)
[2021-07-12] MEDS: OMEPRAZOLE 20 MG CAP PO SCH (09:54)
[2021-07-12] MEDS: ASPIRIN 81MG ENTERIC TABLET PO SCH (09:54)
[2021-07-12] MEDS: DOCUSATE SODIUM 100MG CAPSULE PO SCH ×2 (09:54→20:27)
--- NOTE | 2021-07-12 13:17 | IPNPDOC ---
Date Seen The patient was seen on 07/12/21. Progress Note Subjective: Complains of 10 out of 10 pain in the right lower extremity. No chest pain pressure tightness shortness of breath Denies pleuritic chest pain Objective: Physical exam: Vitals: See below General: Alert and oriented x3 no respiratory distress HEENT: Normocephalic, atraumatic, moist mucous membranes. No JVD thyromegaly Neck: No lymphadenopathy or cervical lymphadenopathy Cardiac: Regular rate and rhythm, no murmurs, normal S1, normal S2 Pulm: Clear to auscultation bilaterally. No wheezes, rhonchi, rales Abd: Nondistended, nontender to palpation, normal bowel sounds Ext: No edema bilateral lower extremities. Right knee is wrapped in Jose bandage wrap with knee immobilizer over. Dorsalis pedis noted Skin: Warm dry well perfused pink in color Labs: See below Imaging: No new imaging is been performed. Assessment/plan: 71-year-old female presented to the hospital with right tibial plateau fracture. 1. Right tibial plateau fracture. Status post surgery 07/09/[address] Murillo on 07/14/2021 in the orthopedic clinic. follow-up in [address] Humphries for repeat imaging. pain control. PT and OT ARU screen has been placed. 2. GERD. Continue omeprazole. 3. Hypertension. Continue amlodipine. 4. History of acquired asplenia. Patient has a history of a splenectomy needs vaccinations against gram neg infections. DVT Prophylaxis: Mechanical and aspirin per orthopedic surgery Disposition: pending aru acceptance VS, I&O, 24H, Benignobone Vital Signs/I&O Vital Signs Date Time Temp Pulse Resp B/P (MAP) Pulse Ox O2 Delivery O2 Flow Rate FiO2 07/12/21 10:24 16 Room Air 07/12/21 06:00 97.5 78 125/74 (91) 92 07/10/21 02:00 1.0 I&O- Last 24 Hours up to 6 AM 07/12/21 06:00 Intake Total 2050 ml Balance 2050 ml Laboratory Data 24H LABS Laboratory Tests 2 07/12/21 05:17: Nucleated Red Blood Cells % (auto) 0.0, Anion Gap 2L, Glomerular Filtration Rate > 60.0, Calcium Level 9.8, Magnesium Level 2.2 CBC/BMP Laboratory Tests 07/12/21 05:17 CHACHA ESPINOZA MD Jul 12, 2021 13:17
[2021-07-12 14:00] VITALS: BP 131/77
[2021-07-12 22:00] VITALS: BP 131/76
[2021-07-13] MEDS: NORCO, ANEXSIA 5/325MG TABLET (HYDROcodone/ACETAMINOPHEN) PO PRN ×3 (05:37→20:41)
[2021-07-13 06:00] VITALS: BP_SYST 134; BP_SYST 97; BP_DIAS 58; BP_DIAS 75
[2021-07-13] MEDS: ASPIRIN 81MG ENTERIC TABLET PO SCH (07:58)
[2021-07-13] MEDS: DOCUSATE SODIUM 100MG CAPSULE PO SCH ×2 (07:59→20:42)
[2021-07-13] MEDS: OMEPRAZOLE 20 MG CAP PO SCH (07:59)
[2021-07-13 09:51] LABS: HEMATOCRIT 35.7 % (36.0-47.0); HEMOGLOBIN 11.6 g/dl (12.0-15.5); MEAN CORPUSCULAR HEMOGLOBIN 33.5 pg (27.0-33.0); MEAN CORPUSCULAR HGB CONC 32.5 g/dl (32.0-36.5); MEAN CORPUSCULAR VOLUME 103.2 fl (80.0-96.0); PLATELET COUNT, AUTOMATED 687 10^3/uL (150-450); RED BLOOD COUNT 3.46 10^6/uL (4.00-5.40); WHITE BLOOD COUNT 10.9 10^3/uL (4.0-10.0)
[2021-07-13 10:00] VITALS: BP 148/78
[2021-07-13 10:30] LABS: BLOOD UREA NITROGEN 13 MG/DL (7-18); CALCIUM LEVEL 10.3 MG/DL (8.8-10.2); CARBON DIOXIDE LEVEL 34 MEQ/L (21-32); CHLORIDE LEVEL 105 MEQ/L (98-107); CREATININE FOR GFR 0.69 MG/DL (0.55-1.30); GLOMERULAR FILTRATION RATE > 60.0 (>45); GLUCOSE, FASTING 86 MG/DL (70-100); MAGNESIUM LEVEL 2.2 MG/DL (1.8-2.4); POTASSIUM SERUM 4.3 MEQ/L (3.5-5.1); SODIUM LEVEL 141 MEQ/L (136-145)
--- NOTE | 2021-07-13 12:14 | IPN ---
PROGRESS NOTE DATE: 07/13/2021 SUBJECTIVE: The patient says her pain is controlled when she takes her medications except when she moves her leg. No fever, chills, shortness of breath, no other issues, tolerating her diet, no constipation, no diarrhea. OBJECTIVE: Vitals: Temperature 97.8, pulse 71, respiratory rate 15, blood pressure 134/75, 93% on room air. General: Awake, alert and oriented to person, place and time, answering questions appropriately. Lungs: Clear to auscultation. No wheezing, rales or rhonchi. Heart: S1, S2, sinus rhythm. Abdomen: Soft, nontender, nondistended. Positive bowel sounds. Extremities: Right knee is wrapped in a bandage with knee immobilizer. Dorsalis pedis noted. Skin: Warm, dry, well perfused, pink in color. Laboratory data, imaging studies have been reviewed. ASSESSMENT AND PLAN: A 71-year-old female admitted due to a fall with right tip of the toe fracture. IMPRESSION: 1. Right tip of the toe fracture, status post surgery, 07/09/2021. 2. GERD. 3. Hypertension. 4. History of acquired asplenia. PLAN: 1. The patient is continued on mechanical DVT prophylaxis and aspirin. She is nonweightbearing for three months. Follow up with Dr. Murillo on 07/14 in orthopedic clinic, follow up in six weeks with Dr. Humphries for repeat imaging. Currently well controlled with current pain regimen. PT, OT and ARU screen has been placed. 2. Continue Prilosec for reflux. 3. Continue amlodipine for hypertension. 4. Due to history of acquired asplenia and history of splenectomy, the patient will need vaccination against gram negative infection at hospital discharge. DISPOSITION: Discharge has been postponed, awaiting insurance approval for acute rehab unit stay.
[2021-07-13 14:00] VITALS: BP 155/86
[2021-07-13 22:00] VITALS: BP 140/75
[2021-07-14] MEDS: NORCO, ANEXSIA 5/325MG TABLET (HYDROcodone/ACETAMINOPHEN) PO PRN ×4 (03:43→22:08)
[2021-07-14 06:00] VITALS: BP 132/77
[2021-07-14 07:46] LABS: HEMATOCRIT 38.1 % (36.0-47.0); HEMOGLOBIN 12.3 g/dl (12.0-15.5); MEAN CORPUSCULAR HGB CONC 32.3 g/dl (32.0-36.5); MEAN CORPUSCULAR VOLUME 105.2 fl (80.0-96.0); PLATELET COUNT, AUTOMATED 753 10^3/uL (150-450); RED BLOOD COUNT 3.62 10^6/uL (4.00-5.40)
[2021-07-14 08:12] LABS: BLOOD UREA NITROGEN 15 MG/DL (7-18); CALCIUM LEVEL 10.2 MG/DL (8.8-10.2); CARBON DIOXIDE LEVEL 31 MEQ/L (21-32); CHLORIDE LEVEL 108 MEQ/L (98-107); CREATININE FOR GFR 0.72 MG/DL (0.55-1.30); GLOMERULAR FILTRATION RATE > 60.0 (>45); GLUCOSE, FASTING 99 MG/DL (70-100); MAGNESIUM LEVEL 2.3 MG/DL (1.8-2.4); POTASSIUM SERUM 4.6 MEQ/L (3.5-5.1); SODIUM LEVEL 143 MEQ/L (136-145)
[2021-07-14] MEDS: DOCUSATE SODIUM 100MG CAPSULE PO SCH ×2 (08:31→22:08)
[2021-07-14] MEDS: ASPIRIN 81MG ENTERIC TABLET PO SCH (08:31)
[2021-07-14] MEDS: OMEPRAZOLE 20 MG CAP PO SCH (08:31)
--- NOTE | 2021-07-14 13:01 | IPN ---
PROGRESS NOTE DATE: 07/14/2021 SUBJECTIVE: The patient is nonweightbearing on the right lower extremity. She has no new complaints. No fever or chills. The patient went to wash out today. No other issues per nursing, awaiting ARU acceptance and pain is well-controlled. OBJECTIVE: VITAL SIGNS: Temperature is 97.6, pulse is 76, respiratory rate is 18, blood pressure is 132/77, 94% on room air. GENERAL: Patient is awake, alert and oriented x3, answering questions appropriately. LUNGS: Clear to auscultation. No wheezing, rales or rhonchi. HEART: S1 and S2. Sinus rhythm. ABDOMEN: Soft, nontender and nondistended. EXTREMITIES: The right lower extremity is in a knee immobilizer. Dorsalis pedis posterior tibialis is noted. SKIN: Warm and dry, well-perfused. [place] in color. LABORATORY DATA/IMAGING STUDIES/MICROBIOLOGY: Have been reviewed. ASSESSMENT AND PLAN: This is a 71-year-old female admitted due to a fall with right tibial fracture. IMPRESSION: 1. Right tibial plateau fracture. 2. GERD. 3. Hypertension. 4. Acquired asplenia with splenectomy. PLAN: Continue present management. Continue with Ortho recommendation. Awaiting ARU. No other acute issues. [facility]
[2021-07-14 14:00] VITALS: BP 137/88
[2021-07-14] MEDS ORDERED: HYDR-3715 PO (19:01)
[2021-07-14] MEDS ORDERED: ASPI-551 PO (19:01)
[2021-07-14] MEDS ORDERED: ACET1TAB55 PO (19:01)
[2021-07-14] MEDS ORDERED: COLA100C5 PO (19:01)
[2021-07-14 22:00] VITALS: BP 132/75
[2021-07-15] MEDS: NORCO, ANEXSIA 5/325MG TABLET (HYDROcodone/ACETAMINOPHEN) PO PRN ×3 (04:15→17:02)
[2021-07-15 06:00] VITALS: BP 131/74
[2021-07-15] MEDS: DOCUSATE SODIUM 100MG CAPSULE PO SCH ×2 (10:32→20:19)
[2021-07-15] MEDS: ASPIRIN 81MG ENTERIC TABLET PO SCH (10:32)
[2021-07-15] MEDS: OMEPRAZOLE 20 MG CAP PO SCH (10:32)
[2021-07-15 14:00] VITALS: BP 139/83
--- NOTE | 2021-07-15 14:03 | DSES ---
DISCHARGE SUMMARY DATE OF ADMISSION: 07/05/2021 DATE OF DISCHARGE: 07/15/2021 CONSULTANTS DURING THIS ADMISSION: Orthopedic surgeon; Dr. Humphries. PROCEDURES DURING THIS ADMISSION: On 07/09/2021, right tibial plateau open reduction internal fixation and diagnostic arthroscopy. PRIMARY DISCHARGE DIAGNOSES: 1. Mechanical fall. 2. Right tibial plateau fractures split depression variants, status post open reduction internal fixation and diagnostic arthroscopy on 07/09. 3. GERD. 4. Hypertension. 5. Acquired asplenia with splenectomy. DISCHARGE MEDICATIONS: 1. Acetaminophen 650 mg every 4 hours. 2. Aspirin 81 mg daily. 3. Colace 100 mg b.i.d. 4. Hydrocodone/Acetaminophen one tablet every 6 hours as needed for pain and two tablets every 6 hours as needed for severe pain. 5. Folic acid one daily. 6. Prilosec 20 mg daily. DISCHARGE INSTRUCTIONS: Activity, postop care, follow-up per orthopedic surgery. Nonweightbearing for three months. Follow-up in the office with Dr. Humphries as previously recommended. HOSPITAL COURSE: This is a 71-year-old female admitted on 07/05/2021 with complaints of right knee pain after falling at work and hurting her right knee. 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 Patient was brought in to the Emergency Room, was found to have a right tibial plateau fracture and was brought into the Operating Room on 07/09/2021; status post open reduction internal fixation and diagnostic arthroscopy. Per orthopedic surgeon, patient is to be nonweightbearing for three months to continue with OT and PT, and follow-up in the office in six weeks' time for repeat imaging. The patient has had no other acute issues during the hospital stay and was continued on all her home medications. Pain has been controlled on 1-2 tablets on Hydrocodone/Acetaminophen every 6 hours. DISCHARGE PHYSICAL EXAMINATION: VITAL SIGNS: Temperature 98.2, pulse 74, respiratory rate 19, blood pressure 131/74, 96% on room air. GENERAL: Awake, alert, oriented x3. Answering questions appropriately. No distress. HEENT: No JVD, thyromegaly, cervical lymphadenopathy. Moist mucous membranes. LUNGS: Clear to auscultation. No wheezing, rales or rhonchi. HEART: S1, S2, sinus rhythm. ABDOMEN: Obese, soft, nontender, non-distended. Positive bowel sounds. EXTREMITIES: Right knee is wrapped with a knee immobilizer. Foot has good dorsalis pedis, posterior tibialis pulses. SKIN: Warm and dry, pink in color. LABORATORY DATA/IMAGING STUDIES/MICROBIOLOGY: Please see the chart. TIME SPENT ON DISCHARGE: 30 minutes. MTDD
[2021-07-15 21:44] VITALS: BP 137/84
[2021-07-15 22:25] VITALS: BP 144/79
== END 2021-07-15 22:09 | DRG 313 ==
LOC: M ED 15:16 → M ED INP 15:17 → M MS5PR 20:25 → OBSVTOIN 07-06 18:02 → M PM&R 07-15 22:25 → M MS5PR 07-15 22:25
PROVIDERS: ADMIT Family Medicine; ATTEND General Practice
PROC: 0QSG04Z Reposition Right Tibia with Internal Fixation Device, Open Approach (ICD-10-PCS; principal; 2021-07-09 08:30)
DX: S82.291A Other fracture of shaft of right tibia, initial encounter for closed fracture (principal); I10 Essential (primary) hypertension; Z90.81 Acquired absence of spleen; K21.9 Gastro-esophageal reflux disease without esophagitis; Z79.82 Long term (current) use of aspirin; Z79.899 Other long term (current) drug therapy; M81.0 Age-related osteoporosis without current pathological fracture; W18.30XA Fall on same level, unspecified, initial encounter; Y92.59 Other trade areas as the place of occurrence of the external cause

== ENCOUNTER 2021-07-14 13:49 | Inpatient (IN) | payer OTHER, MEDICARE ==
[~2021-07-14] VITALS: Ht 157.5 cm; Wt 88.0 kg
[~2021-07-14 13:49] MED LIST: CHLO125TA; FOLI1TAB11 PO; FOSA70TA PO; OMEP10CASR PO; OMEP1CAP73 PO
[2021-07-14] MEDS ORDERED: HYDR-3715 PO (19:01)
[2021-07-14] MEDS ORDERED: ASPI-551 PO (19:01)
[2021-07-14] MEDS ORDERED: COLA100C5 PO (19:01)
[2021-07-14] MEDS ORDERED: ACET1TAB55 PO (19:01)
[2021-07-15] MEDS ORDERED: ONDANSETRON 4 MG TAB PO PRN (11:40)
[2021-07-15] MEDS: DOCUSATE SODIUM 100MG CAPSULE PO SCH (21:00)
[2021-07-15] MEDS: SENNA 8.6 MG TAB (SENOKOT) PO SCH (21:00)
[2021-07-15] MEDS: GABAPENTIN 100 MG CAP PO SCH (21:00)
[2021-07-15 22:25] VITALS: BP 144/79
[2021-07-16 06:00] VITALS: BP 160/86
[2021-07-16 06:38] LABS: BASO # 0.1 10^3/uL (0.0-0.2); BASO % 0.4 % (0.0-1.0); EOS # 0.1 10^3/uL (0.0-0.5); EOS % 0.5 % (0.0-3.0); HEMATOCRIT 37.1 % (36.0-47.0); LYMPH # 2.1 10^3/uL (1.5-5.0); LYMPH % 15.3 % (24.0-44.0); MEAN CORPUSCULAR HEMOGLOBIN 33.5 pg (27.0-33.0); MEAN CORPUSCULAR HGB CONC 32.3 g/dl (32.0-36.5); MEAN CORPUSCULAR VOLUME 103.6 fl (80.0-96.0); MONO # 0.7 10^3/uL (0.0-0.8); MONO % 4.9 % (2.0-8.0); NEUTROPHILS # 10.7 10^3/uL (1.5-8.5); NEUTROPHILS % 78.7 % (36.0-66.0); PLATELET COUNT, AUTOMATED 831 10^3/uL (150-450); RED BLOOD COUNT 3.58 10^6/uL (4.00-5.40); WHITE BLOOD COUNT 13.6 10^3/uL (4.0-10.0)
[2021-07-16 07:05] LABS: ALBUMIN 2.8 GM/DL (3.2-5.2); ALT/SGPT 47 U/L (12-78); BILIRUBIN,TOTAL 0.4 MG/DL (0.2-1.0); BLOOD UREA NITROGEN 20 MG/DL (7-18); CALCIUM LEVEL 10.6 MG/DL (8.8-10.2); CARBON DIOXIDE LEVEL 30 MEQ/L (21-32); CHLORIDE LEVEL 105 MEQ/L (98-107); CREATININE FOR GFR 0.89 MG/DL (0.55-1.30); GLOMERULAR FILTRATION RATE > 60.0 (>45); GLUCOSE, FASTING 115 MG/DL (70-100); POTASSIUM SERUM 4.9 MEQ/L (3.5-5.1); SODIUM LEVEL 138 MEQ/L (136-145); TOTAL PROTEIN 6.4 GM/DL (6.4-8.2)
[2021-07-16] MEDS: OMEPRAZOLE 20MG CAP PO SCH (08:43)
[2021-07-16] MEDS: GABAPENTIN 100 MG CAP PO SCH ×3 (08:43→21:24)
[2021-07-16] MEDS: ASPIRIN 81MG ENTERIC TABLET PO SCH (08:43)
[2021-07-16] MEDS: FUROSEMIDE 20 MG TAB PO SCH (08:44)
[2021-07-16] MEDS: HEPARIN SOD (PORCINE) 5000UNITS/ML 1ML VIAL/SYRINGE SC SCH ×2 (08:44→21:25)
[2021-07-16] MEDS: DOCUSATE SODIUM 100MG CAPSULE PO SCH ×2 (08:44→21:00)
[2021-07-16 14:00] VITALS: BP 143/85
[2021-07-16] MEDS: amLODIPine 5 MG TAB PO SCH (16:37)
[2021-07-16 20:00] VITALS: BP 137/94
[2021-07-16] MEDS: SENNA 8.6 MG TAB (SENOKOT) PO SCH (21:00)
[2021-07-16] MEDS: ACETAMINOPHEN TAB 650MG DOSE (2X325MG) PO PRN (21:24)
[2021-07-16] MEDS: traZODone 25MG PER 1/2 TABLET PO PRN (21:25)
[2021-07-17] MEDS: NORCO, ANEXSIA 5/325MG TABLET (HYDROcodone/ACETAMINOPHEN) PO PRN (05:54)
[2021-07-17 06:00] VITALS: BP 132/89
[2021-07-17] MEDS: ASPIRIN 81MG ENTERIC TABLET PO SCH (08:35)
[2021-07-17] MEDS: GABAPENTIN 100 MG CAP PO SCH ×3 (08:36→21:12)
[2021-07-17] MEDS: DOCUSATE SODIUM 100MG CAPSULE PO SCH ×2 (08:36→21:00)
[2021-07-17] MEDS: OMEPRAZOLE 20MG CAP PO SCH (08:36)
[2021-07-17] MEDS: amLODIPine 5 MG TAB PO SCH (08:36)
[2021-07-17] MEDS: HEPARIN SOD (PORCINE) 5000UNITS/ML 1ML VIAL/SYRINGE SC SCH ×2 (08:36→21:12)
[2021-07-17] MEDS: FUROSEMIDE 20 MG TAB PO SCH (08:36)
[2021-07-17 14:00] VITALS: BP 148/68
[2021-07-17] MEDS: ACETAMINOPHEN TAB 650MG DOSE (2X325MG) PO PRN (16:34)
[2021-07-17] MEDS: SENNA 8.6 MG TAB (SENOKOT) PO SCH (21:00)
[2021-07-17 21:46] VITALS: BP 144/71
[2021-07-18] MEDS: NORCO, ANEXSIA 5/325MG TABLET (HYDROcodone/ACETAMINOPHEN) PO PRN ×2 (02:44→10:56)
[2021-07-18 06:00] VITALS: BP 128/78
[2021-07-18] MEDS: amLODIPine 5 MG TAB PO SCH (09:43)
[2021-07-18] MEDS: GABAPENTIN 100 MG CAP PO SCH ×3 (09:43→20:00)
[2021-07-18] MEDS: FUROSEMIDE 20 MG TAB PO SCH (09:43)
[2021-07-18] MEDS: OMEPRAZOLE 20MG CAP PO SCH (09:43)
[2021-07-18] MEDS: ASPIRIN 81MG ENTERIC TABLET PO SCH (09:44)
[2021-07-18] MEDS: DOCUSATE SODIUM 100MG CAPSULE PO SCH ×2 (09:44→19:59)
[2021-07-18] MEDS: HEPARIN SOD (PORCINE) 5000UNITS/ML 1ML VIAL/SYRINGE SC SCH ×2 (09:44→19:59)
[2021-07-18 11:12] LABS: BASO # 0.1 10^3/uL (0.0-0.2); BASO % 0.6 % (0.0-1.0); EOS # 0.1 10^3/uL (0.0-0.5); EOS % 0.9 % (0.0-3.0); HEMATOCRIT 38.7 % (36.0-47.0); HEMOGLOBIN 12.7 g/dl (12.0-15.5); LYMPH # 3.3 10^3/uL (1.5-5.0); LYMPH % 25.4 % (24.0-44.0); MEAN CORPUSCULAR HEMOGLOBIN 34.1 pg (27.0-33.0); MEAN CORPUSCULAR HGB CONC 32.8 g/dl (32.0-36.5); MONO % 7.7 % (2.0-8.0); NEUTROPHILS # 8.3 10^3/uL (1.5-8.5); NEUTROPHILS % 64.9 % (36.0-66.0); PLATELET COUNT, AUTOMATED 952 10^3/uL (150-450); RED BLOOD COUNT 3.72 10^6/uL (4.00-5.40); WHITE BLOOD COUNT 12.8 10^3/uL (4.0-10.0)
[2021-07-18 11:34] LABS: BLOOD UREA NITROGEN 19 MG/DL (7-18); CARBON DIOXIDE LEVEL 29 MEQ/L (21-32); CHLORIDE LEVEL 106 MEQ/L (98-107); CREATININE FOR GFR 0.88 MG/DL (0.55-1.30); GLOMERULAR FILTRATION RATE > 60.0 (>45); GLUCOSE, FASTING 112 MG/DL (70-100); POTASSIUM SERUM 4.4 MEQ/L (3.5-5.1); SODIUM LEVEL 140 MEQ/L (136-145)
[2021-07-18 14:00] VITALS: BP 137/89
[2021-07-18 14:09] LABS: C REACTIVE PROTEIN QUANTITATIV 1.15 MG/DL (0.00-0.30)
[2021-07-18 15:59] LABS: ERYTHROCYTE SEDIMENTATION RATE 46 mm/hr (0-30)
[2021-07-18] MEDS: LACTOBACILLUS ACIDOPHILUS CAP (BACID) PO SCH ×2 (17:30→20:00)
[2021-07-18 20:00] VITALS: BP 130/65
[2021-07-18] MEDS: SENNA 8.6 MG TAB (SENOKOT) PO SCH (20:00)
[2021-07-18] MEDS: DOXYCYCLINE HYCLATE 100MG TABLET PO SCH (20:00)
[2021-07-19] MEDS: NORCO, ANEXSIA 5/325MG TABLET (HYDROcodone/ACETAMINOPHEN) PO PRN ×2 (03:38→20:23)
[2021-07-19 06:00] VITALS: BP 132/67
[2021-07-19] MEDS: LACTOBACILLUS ACIDOPHILUS CAP (BACID) PO SCH ×4 (08:00→20:22)
[2021-07-19] MEDS: FUROSEMIDE 20 MG TAB PO SCH (09:00)
[2021-07-19] MEDS: ASPIRIN 81MG ENTERIC TABLET PO SCH (09:16)
[2021-07-19] MEDS: OMEPRAZOLE 20MG CAP PO SCH (09:17)
[2021-07-19] MEDS: DOCUSATE SODIUM 100MG CAPSULE PO SCH ×2 (09:17→20:24)
[2021-07-19] MEDS: GABAPENTIN 100 MG CAP PO SCH ×3 (09:17→20:22)
[2021-07-19] MEDS: DOXYCYCLINE HYCLATE 100MG TABLET PO SCH ×2 (09:17→20:22)
[2021-07-19] MEDS: amLODIPine 5 MG TAB PO SCH (09:17)
[2021-07-19] MEDS: HEPARIN SOD (PORCINE) 5000UNITS/ML 1ML VIAL/SYRINGE SC SCH ×2 (09:19→20:23)
[2021-07-19 14:00] VITALS: BP 151/83
[2021-07-19] MEDS: SENNA 8.6 MG TAB (SENOKOT) PO SCH (20:22)
[2021-07-19 21:42] VITALS: BP 154/77
[2021-07-20] MEDS: ACETAMINOPHEN TAB 650MG DOSE (2X325MG) PO PRN (04:08)
[2021-07-20 06:00] VITALS: BP 137/70
[2021-07-20] MEDS: FUROSEMIDE 20 MG TAB PO SCH ×2 (08:09→16:19)
[2021-07-20] MEDS: OMEPRAZOLE 20MG CAP PO SCH (08:09)
[2021-07-20] MEDS: amLODIPine 5 MG TAB PO SCH (08:09)
[2021-07-20] MEDS: LACTOBACILLUS ACIDOPHILUS CAP (BACID) PO SCH ×4 (08:09→20:49)
[2021-07-20] MEDS: GABAPENTIN 100 MG CAP PO SCH ×3 (08:09→20:50)
[2021-07-20] MEDS: DOXYCYCLINE HYCLATE 100MG TABLET PO SCH ×2 (08:09→20:49)
[2021-07-20] MEDS: ASPIRIN 81MG ENTERIC TABLET PO SCH (08:10)
[2021-07-20] MEDS: DOCUSATE SODIUM 100MG CAPSULE PO SCH ×2 (08:10→20:50)
[2021-07-20] MEDS: HEPARIN SOD (PORCINE) 5000UNITS/ML 1ML VIAL/SYRINGE SC SCH (08:10)
[2021-07-20 08:14] LABS: BASO # 0.1 10^3/uL (0.0-0.2); BASO % 0.8 % (0.0-1.0); EOS # 0.2 10^3/uL (0.0-0.5); EOS % 1.6 % (0.0-3.0); HEMATOCRIT 39.7 % (36.0-47.0); HEMOGLOBIN 12.8 g/dl (12.0-15.5); LYMPH # 2.7 10^3/uL (1.5-5.0); LYMPH % 26.9 % (24.0-44.0); MEAN CORPUSCULAR HEMOGLOBIN 33.7 pg (27.0-33.0); MEAN CORPUSCULAR HGB CONC 32.2 g/dl (32.0-36.5); MEAN CORPUSCULAR VOLUME 104.5 fl (80.0-96.0); MONO # 0.7 10^3/uL (0.0-0.8); MONO % 6.8 % (2.0-8.0); NEUTROPHILS # 6.3 10^3/uL (1.5-8.5); NEUTROPHILS % 63.6 % (36.0-66.0)
[2021-07-20 08:17] LABS: PLATELET COUNT, AUTOMATED 1005 10^3/uL (150-450)
[2021-07-20 08:38] LABS: ERYTHROCYTE SEDIMENTATION RATE 45 mm/hr (0-30)
[2021-07-20 08:39] LABS: BLOOD UREA NITROGEN 15 MG/DL (7-18); C REACTIVE PROTEIN QUANTITATIV 0.93 MG/DL (0.00-0.30); CALCIUM LEVEL 10.9 MG/DL (8.8-10.2); CARBON DIOXIDE LEVEL 31 MEQ/L (21-32); CHLORIDE LEVEL 107 MEQ/L (98-107); CREATININE FOR GFR 0.79 MG/DL (0.55-1.30); GLOMERULAR FILTRATION RATE > 60.0 (>45); GLUCOSE, FASTING 98 MG/DL (70-100); POTASSIUM SERUM 4.9 MEQ/L (3.5-5.1); SODIUM LEVEL 142 MEQ/L (136-145)
[2021-07-20 14:00] VITALS: BP 141/79
[2021-07-20] MEDS: NORCO, ANEXSIA 5/325MG TABLET (HYDROcodone/ACETAMINOPHEN) PO PRN (17:48)
[2021-07-20 20:00] VITALS: BP 136/79
[2021-07-20] MEDS: SENNA 8.6 MG TAB (SENOKOT) PO SCH (20:49)
[2021-07-21] MEDS: NORCO, ANEXSIA 5/325MG TABLET (HYDROcodone/ACETAMINOPHEN) PO PRN ×2 (01:17→20:19)
[2021-07-21] MEDS: ACETAMINOPHEN TAB 650MG DOSE (2X325MG) PO PRN ×2 (03:44→17:53)
[2021-07-21 06:00] VITALS: BP 128/69
[2021-07-21 06:28] LABS: BASO # 0.1 10^3/uL (0.0-0.2); BASO % 0.9 % (0.0-1.0); EOS # 0.2 10^3/uL (0.0-0.5); EOS % 1.9 % (0.0-3.0); HEMATOCRIT 38.4 % (36.0-47.0); HEMOGLOBIN 12.6 g/dl (12.0-15.5); LYMPH # 3.4 10^3/uL (1.5-5.0); LYMPH % 29.9 % (24.0-44.0); MEAN CORPUSCULAR HEMOGLOBIN 33.8 pg (27.0-33.0); MEAN CORPUSCULAR HGB CONC 32.8 g/dl (32.0-36.5); MEAN CORPUSCULAR VOLUME 102.9 fl (80.0-96.0); MONO # 0.9 10^3/uL (0.0-0.8); MONO % 8.4 % (2.0-8.0); NEUTROPHILS # 6.6 10^3/uL (1.5-8.5); NEUTROPHILS % 58.6 % (36.0-66.0); PLATELET COUNT, AUTOMATED 948 10^3/uL (150-450); RED BLOOD COUNT 3.73 10^6/uL (4.00-5.40); WHITE BLOOD COUNT 11.2 10^3/uL (4.0-10.0)
[2021-07-21 07:01] LABS: ERYTHROCYTE SEDIMENTATION RATE 39 mm/hr (0-30)
[2021-07-21] MEDS: OMEPRAZOLE 20MG CAP PO SCH (09:17)
[2021-07-21] MEDS: DOXYCYCLINE HYCLATE 100MG TABLET PO SCH ×2 (09:17→20:18)
[2021-07-21] MEDS: LACTOBACILLUS ACIDOPHILUS CAP (BACID) PO SCH ×4 (09:17→20:18)
[2021-07-21] MEDS: DOCUSATE SODIUM 100MG CAPSULE PO SCH ×2 (09:17→20:18)
[2021-07-21] MEDS: ASPIRIN 81MG ENTERIC TABLET PO SCH (09:17)
[2021-07-21] MEDS: GABAPENTIN 100 MG CAP PO SCH ×3 (09:17→20:18)
[2021-07-21] MEDS: amLODIPine 5 MG TAB PO SCH (09:17)
[2021-07-21] MEDS: FUROSEMIDE 20 MG TAB PO SCH ×2 (09:21→17:00)
[2021-07-21 14:00] VITALS: BP 122/60
[2021-07-21 20:00] VITALS: BP 139/69
[2021-07-21] MEDS: traZODone 25MG PER 1/2 TABLET PO PRN (20:18)
[2021-07-21] MEDS: SENNA 8.6 MG TAB (SENOKOT) PO SCH (20:19)
[2021-07-22] MEDS: NORCO, ANEXSIA 5/325MG TABLET (HYDROcodone/ACETAMINOPHEN) PO PRN ×2 (02:21→11:46)
[2021-07-22 06:00] VITALS: BP 133/85
[2021-07-22] MEDS: DOXYCYCLINE HYCLATE 100MG TABLET PO SCH (08:35)
[2021-07-22] MEDS: OMEPRAZOLE 20MG CAP PO SCH (08:35)
[2021-07-22] MEDS: LACTOBACILLUS ACIDOPHILUS CAP (BACID) PO SCH (08:35)
[2021-07-22] MEDS: ASPIRIN 81MG ENTERIC TABLET PO SCH (08:35)
[2021-07-22 08:36] VITALS: BP 133/85
[2021-07-22] MEDS: GABAPENTIN 100 MG CAP PO SCH (08:36)
[2021-07-22] MEDS: DOCUSATE SODIUM 100MG CAPSULE PO SCH (08:36)
[2021-07-22] MEDS: amLODIPine 5 MG TAB PO SCH (08:36)
[2021-07-22] MEDS: FUROSEMIDE 20 MG TAB PO SCH (08:36)
[2021-07-22] MEDS ORDERED: ASPI-551 PO (08:41)
[2021-07-22] MEDS ORDERED: TRAZ-252 PO (08:41)
[2021-07-22] MEDS ORDERED: RISATAB3 PO (08:41)
[2021-07-22] MEDS ORDERED: DOXY100T PO (08:41)
[2021-07-22] MEDS ORDERED: AMLO1TAB24 PO (08:41)
[2021-07-22] MEDS ORDERED: OMEP1CAP73 PO (08:41)
[2021-07-22] MEDS ORDERED: GABA-1171 PO (08:41)
[2021-07-22] MEDS ORDERED: HYDR-3715 PO (08:41)
== END 2021-07-22 11:15 | disposition home or self-care (01) | DRG 862 ==
LOC: M PM&R 07-15 10:25
PROVIDERS: ADMIT Physical Medicine & Rehabilitation; ATTEND Physical Medicine & Rehabilitation
DX: S82.141D Displaced bicondylar fracture of right tibia, subsequent encounter for closed fracture with routine healing (principal); I10 Essential (primary) hypertension; M81.0 Age-related osteoporosis without current pathological fracture; K21.9 Gastro-esophageal reflux disease without esophagitis; W18.09XD Striking against other object with subsequent fall, subsequent encounter; Y92.89 Other specified places as the place of occurrence of the external cause; Y99.0 Civilian activity done for income or pay; Z74.09 Other reduced mobility; Z74.1 Need for assistance with personal care; Z90.81 Acquired absence of spleen; Z79.82 Long term (current) use of aspirin; Z79.899 Other long term (current) drug therapy; Z88.5 Allergy status to narcotic agent

== ENCOUNTER → 2021-07-26 | Outpatient (CLI) | payer OTHER, MEDICARE ==
[~2021-07-26] MED LIST changes: +ACET1TAB55 PO; +AMLO1TAB24 PO; +ASPI-551 PO; +COLA100C5 PO; +DOXY100T PO; +GABA-1171 PO; +HYDR-3715 PO; +RISATAB3 PO; +TRAZ-252 PO
== END ==
LOC: M SOG 09:57
PROVIDERS: ATTEND Orthopaedic Surgery
DX: M96.671 Fracture of tibia or fibula following insertion of orthopedic implant, joint prosthesis, or bone plate, right leg (principal)

== ENCOUNTER → 2021-08-25 | Outpatient (CLI) | payer OTHER, MEDICARE ==
--- NOTE | 2021-08-25 10:55 | REP ---
INDICATION: OTRHO IMPLANT. COMPARISON: 07/26/2021 TECHNIQUE: AP and lateral views of the right tibia/fibula FINDINGS: Examination is essentially stable when compared with prior examination. Evidence for prior open reduction and fixation for proximal tibia fracture. No acute fracture or dislocation identified. Surrounding soft tissues are grossly normal. IMPRESSION: Stable examination. <Electronically signed by Abraham Simons > 08/25/21 [id number]
== END ==
LOC: M SOG 09:27
PROVIDERS: ATTEND Orthopaedic Surgery
DX: M96.671 Fracture of tibia or fibula following insertion of orthopedic implant, joint prosthesis, or bone plate, right leg (principal)

== ENCOUNTER → 2021-09-27 | Outpatient (CLI) | payer OTHER, MEDICARE | LOC: M SOG 10:33 | PROVIDERS: ATTEND Orthopaedic Surgery | DX: Z47.89 Encounter for other orthopedic aftercare (principal) ==

== ENCOUNTER → 2021-10-10 | Outpatient (CLI) | payer OTHER | LOC: M PLAIMG 11:20 | PROVIDERS: ATTEND Internal Medicine Infectious Disease | DX: S82.141K Displaced bicondylar fracture of right tibia, subsequent encounter for closed fracture with nonunion (principal) ==

== ENCOUNTER → 2021-10-25 | Outpatient (CLI) | payer OTHER | LOC: M SOG 08:17 | PROVIDERS: ATTEND Orthopaedic Surgery | DX: S82.141D Displaced bicondylar fracture of right tibia, subsequent encounter for closed fracture with routine healing (principal); X58.XXXD Exposure to other specified factors, subsequent encounter; Y92.89 Other specified places as the place of occurrence of the external cause ==

== ENCOUNTER → 2021-11-29 | Outpatient (POV) | payer MEDICARE ==
[~2021-11-29] VITALS: Ht 157.5 cm; Wt 89.0 kg
[~2021-11-29] MED LIST changes: +ALEN70TA82 PO; +CELE1CAP9 PO
[2021-11-29 11:30] VITALS: BP 160/98
== END ==
LOC: M IRPOV 10:43
PROVIDERS: ATTEND Radiology Diagnostic Radiology
DX: I83.813 Varicose veins of bilateral lower extremities with pain (principal); Z88.5 Allergy status to narcotic agent

== ENCOUNTER → 2021-12-20 | Outpatient (CLI) | payer MEDICARE ==
[~2021-12-20] MED LIST changes: +LIDOCAINE 1% MDV 20ML VIAL As Ordered ONE
[2021-12-20 13:05] LABS: BASO # 0.1 10^3/uL (0.0-0.2); BASO % 0.4 % (0.0-1.0); EOS # 0.2 10^3/uL (0.0-0.5); EOS % 1.5 % (0.0-3.0); HEMATOCRIT 45.3 % (36.0-47.0); LYMPH % 33.7 % (24.0-44.0); MEAN CORPUSCULAR HEMOGLOBIN 33.5 pg (27.0-33.0); MEAN CORPUSCULAR HGB CONC 33.1 g/dl (32.0-36.5); MEAN CORPUSCULAR VOLUME 101.1 fl (80.0-96.0); MONO # 0.8 10^3/uL (0.0-0.8); MONO % 7.2 % (2.0-8.0); NEUTROPHILS # 6.7 10^3/uL (1.5-8.5); NEUTROPHILS % 56.9 % (36.0-66.0); PLATELET COUNT, AUTOMATED 781 10^3/uL (150-450); RED BLOOD COUNT 4.48 10^6/uL (4.00-5.40); WHITE BLOOD COUNT 11.7 10^3/uL (4.0-10.0)
[2021-12-20 13:21] VITALS: BP 146/82
== END ==
LOC: M IRPRO 12:15
PROVIDERS: ATTEND Internal Medicine Medical Oncology
DX: D69.6 Thrombocytopenia, unspecified (principal); D72.829 Elevated white blood cell count, unspecified

== ENCOUNTER → 2022-01-02 | Outpatient (CLI) | payer MEDICARE ==
[~2022-01-02] MED LIST changes: +HYDR500C3 PO; -LIDOCAINE 1% MDV 20ML VIAL As Ordered ONE
== END ==
LOC: M RAD 09:22
PROVIDERS: ATTEND Radiology Diagnostic Radiology
DX: I83.892 Varicose veins of left lower extremity with other complications (principal)

== ENCOUNTER → 2022-01-26 | Outpatient (CLI) | payer MEDICARE | LOC: M SOG 08:59 | PROVIDERS: ATTEND Orthopaedic Surgery | DX: S82.141D Displaced bicondylar fracture of right tibia, subsequent encounter for closed fracture with routine healing (principal); G90.521 Complex regional pain syndrome I of right lower limb ==

== ENCOUNTER → 2022-03-16 | Outpatient (CLI) | payer MEDICARE | LOC: M SOG 09:08 | PROVIDERS: ATTEND Orthopaedic Surgery | DX: S82.141D Displaced bicondylar fracture of right tibia, subsequent encounter for closed fracture with routine healing (principal) ==

== ENCOUNTER → 2022-04-13 | Outpatient (CLI) | payer OTHER ==
[~2022-04-13] MED LIST changes: +ISOVUE-300 61% 50ML VIAL As Ordered ONE; +LIDOCAINE 1% MDV 20ML VIAL As Ordered ONE
== END ==
LOC: M RADPRO 08:20
PROVIDERS: ATTEND Orthopaedic Surgery
DX: S83.261A Peripheral tear of lateral meniscus, current injury, right knee, initial encounter (principal); X58.XXXA Exposure to other specified factors, initial encounter; Y92.9 Unspecified place or not applicable; M94.261 Chondromalacia, right knee
CPT/HCPCS: 27369; 73580; 73701; Q9967

== ENCOUNTER → 2022-04-30 | Outpatient (CLI) | payer MEDICARE ==
[~2022-04-30] MED LIST changes: +ALEN70TA87 PO; -FOSA70TA PO; -ISOVUE-300 61% 50ML VIAL As Ordered ONE; -LIDOCAINE 1% MDV 20ML VIAL As Ordered ONE
== END ==
LOC: M LABSMTC 11:25
PROVIDERS: ATTEND Anesthesiology
DX: Z20.828 Contact with and (suspected) exposure to other viral communicable diseases (principal); Z11.59 Encounter for screening for other viral diseases

== ENCOUNTER → 2022-05-04 | Outpatient (CLI) | payer MEDICARE ==
[~2022-05-04] MED LIST changes: +ATOR1TAB21 PO; +LIDOCAINE 1% MDV 20ML VIAL As Ordered ONE; +LIDOCAINE 2% MDV 20ML VIAL As Ordered ONE; +MIDAZOLAM INJ 2MG/2ML VIAL (J2250 PER 1MG) As Ordered ONE; +NS 1,000 ML IV SCH; +PROMETHAZINE 25MG/ML 1ML VIAL As Ordered ONE; +diphenhydrAMINE 50MG/ML VIAL (J1200) As Ordered ONE; +fentaNYL 100 MCG/2 ML INJECTION As Ordered ONE; +vitamin D PO
[2022-05-04 09:45] VITALS: BP 148/72
== END ==
LOC: M IRPRO 06:35
PROVIDERS: ATTEND Radiology Diagnostic Radiology
DX: I83.812 Varicose veins of left lower extremity with pain (principal); I83.12 Varicose veins of left lower extremity with inflammation; I82.812 Embolism and thrombosis of superficial veins of left lower extremity; Z88.5 Allergy status to narcotic agent; Z79.82 Long term (current) use of aspirin; Z79.899 Other long term (current) drug therapy
CPT/HCPCS: 36478; 99152; 99153; J1200; J2250; J3010

== ENCOUNTER → 2022-05-18 | Outpatient (CLI) | payer MEDICARE ==
[~2022-05-18] MED LIST changes: -PROMETHAZINE 25MG/ML 1ML VIAL As Ordered ONE
[2022-05-18 10:15] VITALS: BP 144/71
== END ==
LOC: M IRPRO 07:39
PROVIDERS: ATTEND Radiology Diagnostic Radiology
DX: I83.892 Varicose veins of left lower extremity with other complications (principal)
CPT/HCPCS: 36465; 87635; 99152; 99153; J1200; J2250; J3010

== ENCOUNTER 2022-05-29 17:50 | Emergency (ER) | payer MEDICARE ==
[~2022-05-29] VITALS: Ht 157.5 cm; Wt 89.1 kg
[~2022-05-29 17:50] MED LIST changes: -LIDOCAINE 1% MDV 20ML VIAL As Ordered ONE; -LIDOCAINE 2% MDV 20ML VIAL As Ordered ONE; -MIDAZOLAM INJ 2MG/2ML VIAL (J2250 PER 1MG) As Ordered ONE; -NS 1,000 ML IV SCH; -diphenhydrAMINE 50MG/ML VIAL (J1200) As Ordered ONE; -fentaNYL 100 MCG/2 ML INJECTION As Ordered ONE
[2022-05-29 21:00] LABS: HEMATOCRIT 48.9 % (36.0-47.0); HEMOGLOBIN 16.5 g/dl (12.0-15.5); MEAN CORPUSCULAR HGB CONC 33.7 g/dl (32.0-36.5); MEAN CORPUSCULAR VOLUME 100.8 fl (80.0-96.0); PLATELET COUNT, AUTOMATED 751 10^3/uL (150-450); RED BLOOD COUNT 4.85 10^6/uL (4.00-5.40); WHITE BLOOD COUNT 19.7 10^3/uL (4.0-10.0)
[2022-05-29 21:31] LABS: MB/CK RELATIVE INDEX 2.97 (< OR =4)
[2022-05-29 21:39] LABS: BLOOD UREA NITROGEN 18 MG/DL (7-18); CALCIUM LEVEL 11.5 MG/DL (8.8-10.2); CARBON DIOXIDE LEVEL 32 MEQ/L (21-32); CHLORIDE LEVEL 102 MEQ/L (98-107); CREATININE FOR GFR 0.95 MG/DL (0.55-1.30); GLOMERULAR FILTRATION RATE > 60.0 (>45); GLUCOSE, FASTING 141 MG/DL (70-100); POTASSIUM SERUM 4.4 MEQ/L (3.5-5.1); SODIUM LEVEL 138 MEQ/L (136-145)
[2022-05-29] MEDS ORDERED: SODIUM CHLORIDE IV ONE (21:40)
[2022-05-29] MEDS ORDERED: ONDANSETRON 4MG 2ML VIAL IV ONE (21:45)
[2022-05-29 22:38] LABS: INFLUENZA A AMPLIFICATION NEGATIVE (NEGATIVE); INFLUENZA B AMPLIFICATION NEGATIVE (NEGATIVE)
[2022-05-29] MEDS ORDERED: LIDOCAINE 1% SDV 5ML VIAL DILUENT ONE (23:20)
[2022-05-29] MEDS ORDERED: cefTRIAXone SOD 2 GM VIAL (J0696 PER 250MG) IM ONE (23:20)
[2022-05-29] MEDS ORDERED: ACETAMINOPHEN 325 MG TAB PO ONE (23:55)
[2022-05-30 00:12] LABS: ALBUMIN 4.2 GM/DL (3.2-5.2); ALT/SGPT 27 U/L (12-78); BILIRUBIN,DIRECT 0.1 MG/DL (0.0-0.2); BILIRUBIN,TOTAL 0.4 MG/DL (0.2-1.0); TOTAL PROTEIN 8.1 GM/DL (6.4-8.2)
[2022-05-30] MEDS ORDERED: NS 1,000 ML IV ONE (01:40)
[2022-05-30] MEDS ORDERED: ONDA4TAB6 PO (03:28)
[2022-05-30 03:50] VITALS: BP 115/53
== END 2022-05-30 04:18 | disposition home or self-care (01) ==
LOC: M ED 17:50
DX: E86.0 Dehydration (principal); I51.7 Cardiomegaly; R11.2 Nausea with vomiting, unspecified; F41.9 Anxiety disorder, unspecified; I10 Essential (primary) hypertension; K21.9 Gastro-esophageal reflux disease without esophagitis; Z88.5 Allergy status to narcotic agent; Z79.52 Long term (current) use of systemic steroids; Z79.899 Other long term (current) drug therapy
CPT/HCPCS: 70450; 71046; 80048; 80076; 81000; 81015; 82550; 82553; 83605; 84484; 85027; 87040; 87631; 87635; 93005; 93041; 94760; 99285; J2405

== ENCOUNTER → 2022-07-04 | Outpatient (POV) | payer MEDICARE ==
[~2022-07-04] VITALS: Ht 162.6 cm; Wt 91.8 kg
[~2022-07-04] MED LIST changes: +ONDA4TAB6 PO
[2022-07-04 13:55] VITALS: BP 172/84
== END ==
LOC: M IRPOV 13:08
PROVIDERS: ATTEND Radiology Diagnostic Radiology
DX: Z48.812 Encounter for surgical aftercare following surgery on the circulatory system (principal); Z88.5 Allergy status to narcotic agent

== ENCOUNTER → 2022-08-10 | Outpatient (CLI) | payer MEDICARE | LOC: M SOG 08:44 | PROVIDERS: ATTEND Student in an Organized Health Care Education/Training Program | DX: M25.562 Pain in left knee (principal); M17.12 Unilateral primary osteoarthritis, left knee ==

== ENCOUNTER → 2022-11-11 | Outpatient (CLI) | payer OTHER | LOC: M RAD 12:41 | PROVIDERS: ATTEND Nurse Practitioner | DX: D72.829 Elevated white blood cell count, unspecified (principal) ==

== ENCOUNTER → 2023-01-11 | Outpatient (CLI) | payer OTHER | LOC: M SOG 15:23 | PROVIDERS: ATTEND Orthopaedic Surgery Hand Surgery | DX: M25.561 Pain in right knee (principal); M79.661 Pain in right lower leg; Z97.8 Presence of other specified devices ==

== ENCOUNTER 2023-04-09 09:04 | Emergency (ER) | payer OTHER ==
[~2023-04-09] VITALS: Ht 157.5 cm; Wt 90.0 kg
[2023-04-09] MEDS ORDERED: CYCLOBENZAPRINE 10MG TABLET PO ONE (10:35)
[2023-04-09] MEDS ORDERED: KETOROLAC 30 MG/ML 1ML VIAL IV ONE (10:35)
[2023-04-09] MEDS ORDERED: LIDOCAINE 5% (LIDODERM) PATCH TD ONE (10:35)
[2023-04-09] MEDS ORDERED: IBUP-1114 PO (10:40)
[2023-04-09] MEDS ORDERED: AZO-95TA3 PO (10:41)
[2023-04-09 11:18] LABS: BASO # 0.1 10^3/uL (0.0-0.2); BASO % 0.6 % (0.0-1.0); EOS # 0.1 10^3/uL (0.0-0.5); EOS % 0.9 % (0.0-3.0); HEMATOCRIT 53.4 % (36.0-47.0); HEMOGLOBIN 17.5 g/dl (12.0-15.5); LYMPH # 3.2 10^3/uL (1.5-5.0); LYMPH % 21.4 % (24.0-44.0); MEAN CORPUSCULAR HEMOGLOBIN 33.5 pg (27.0-33.0); MEAN CORPUSCULAR HGB CONC 32.8 g/dl (32.0-36.5); MEAN CORPUSCULAR VOLUME 102.3 fl (80.0-96.0); MONO # 0.9 10^3/uL (0.0-0.8); MONO % 5.7 % (2.0-8.0); NEUTROPHILS # 10.7 10^3/uL (1.5-8.5); NEUTROPHILS % 71.1 % (36.0-66.0); PLATELET COUNT, AUTOMATED 811 10^3/uL (150-450); RED BLOOD COUNT 5.22 10^6/uL (4.00-5.40); WHITE BLOOD COUNT 15.1 10^3/uL (4.0-10.0)
[2023-04-09] MEDS ORDERED: NS 1,000 ML IV ONE (11:30)
[2023-04-09 11:48] LABS: ALBUMIN 4.1 G/DL (3.2-5.2); ALKALINE PHOSPHATASE 123 U/L (46-116); ALT/SGPT 26 U/L (7.0-40); AST/SGOT 30 U/L (<34); BILIRUBIN,TOTAL 0.5 MG/DL (0.3-1.2); BLOOD UREA NITROGEN 16 MG/DL (9-23); CALCIUM LEVEL 11.4 MG/DL (8.3-10.6); CARBON DIOXIDE LEVEL 27 MMOL/L (20-31); CHLORIDE LEVEL 105 MMOL/L (98-107); CREATININE FOR GFR 0.81 MG/DL (0.55-1.30); GLOMERULAR FILTRATION RATE > 60.0 (>39); GLUCOSE, FASTING 95 MG/DL (74-106); POTASSIUM SERUM 5.7 MMOL/L (3.5-5.1); SODIUM LEVEL 140 MMOL/L (136-145); TOTAL PROTEIN 7.6 G/DL (5.7-8.2)
[2023-04-09] MEDS ORDERED: ISOVUE-370 76% 100ML VIAL As Ordered ONE (13:02)
[2023-04-09] MEDS ORDERED: MORPHINE 4 MG/ML 1ML VIAL IV ONE (14:00)
[2023-04-09] MEDS ORDERED: LIDO5DIS41 TD (15:24)
[2023-04-09] MEDS ORDERED: HYDR-3713 PO (15:24)
[2023-04-09] MEDS ORDERED: CYCL-707 PO (15:24)
[2023-04-09 15:47] VITALS: BP 132/86; TEMP 97.9; O2SAT 97
== END 2023-04-09 15:49 | disposition home or self-care (01) ==
LOC: M ED 09:04
DX: M54.50 Low back pain, unspecified (principal); I10 Essential (primary) hypertension; K21.9 Gastro-esophageal reflux disease without esophagitis; F41.9 Anxiety disorder, unspecified; Z88.5 Allergy status to narcotic agent; Z79.1 Long term (current) use of non-steroidal anti-inflammatories (NSAID); Z79.83 Long term (current) use of bisphosphonates; Z79.02 Long term (current) use of antithrombotics/antiplatelets; Z79.899 Other long term (current) drug therapy
CPT/HCPCS: 72110; 73502; 74177; 80047; 80053; 81001; 85025; 96361; 96374; 96375; 99284; J1885; Q9967

== ENCOUNTER → 2023-10-11 | Outpatient (CLI) | payer OTHER ==
[~2023-10-11] MED LIST changes: +AZO-95TA3 PO; +CELE0.09 PO; -CELE1CAP9 PO; +CYCL-707 PO; +HYDR-3713 PO; +IBUP-1114 PO; +ISOVUE-300 61% 100ML VIAL As Ordered ONE; +LIDO5DIS41 TD; +LIDOCAINE 1% MDV 20ML VIAL As Ordered ONE
== END ==
LOC: M RAD 09:49
PROVIDERS: ATTEND Orthopaedic Surgery Hand Surgery
DX: S83.281A Other tear of lateral meniscus, current injury, right knee, initial encounter (principal); M25.561 Pain in right knee; X58.XXXA Exposure to other specified factors, initial encounter; Y92.9 Unspecified place or not applicable
CPT/HCPCS: 27369; 73580; 73701; Q9967

== ENCOUNTER 2023-12-26 13:58 | Day surgery (SDC) | payer OTHER, MEDICARE ==
[~2023-12-26] VITALS: Ht 157.5 cm; Wt 93.0 kg
[~2023-12-26 13:58] MED LIST changes: +CHLO125TA PO; -ISOVUE-300 61% 100ML VIAL As Ordered ONE; -LIDOCAINE 1% MDV 20ML VIAL As Ordered ONE; +OMEP-173 PO; +ROSU40TA63 PO; +VITA200028 PO
[2023-12-26] MEDS ORDERED: fentaNYL 100 MCG/2 ML INJECTION As Ordered ONE (14:14)
[2023-12-26] MEDS ORDERED: LR 1,000 ML IV SCH ×2 (14:25→16:45)
[2023-12-26] MEDS ORDERED: VANCOMYCIN 1000MG/20ML VIAL As Ordered ONE (14:45)
[2023-12-26] MEDS ORDERED: ACETAMINOPHEN 1000MG 100ML IV BAG As Ordered ONE (15:13)
[2023-12-26] MEDS: ceFAZolin SOD 2 GM in IV 1 EA IV ONE (15:14)
[2023-12-26] MEDS: TRANEXAMIC ACID 100 MG/ML 10ML VIAL As Ordered ONE (15:50)
[2023-12-26] MEDS ORDERED: LABETALOL 100MG/20ML VIAL As Ordered ONE (15:52)
[2023-12-26] MEDS: LIDOCAINE W/EPINEPHRINE 1% 20ML VIAL As Ordered ONE (16:16)
[2023-12-26] MEDS ORDERED: propofoL 200 MG/20 ML VIAL As Ordered ONE (16:34)
[2023-12-26] MEDS ORDERED: PHENYLephrine 500MCG 5ML (100MCG/ML) SYRINGE As Ordered ONE (16:34)
[2023-12-26] MEDS ORDERED: KETOROLAC 60MG 2ML VIAL As Ordered ONE (16:35)
[2023-12-26] MEDS ORDERED: ONDANSETRON 4MG 2ML VIAL As Ordered ONE (16:35)
[2023-12-26] MEDS: EPINEPHrine 1MG/ML INJ 30ML MD-VIAL As Ordered ONE (16:39)
[2023-12-26] MEDS ORDERED: fentaNYL 100 MCG/2 ML INJECTION IV PRN (16:45)
[2023-12-26] MEDS ORDERED: ONDANSETRON 4MG 2ML VIAL IV PRN (16:45)
[2023-12-26] MEDS ORDERED: HYDR-3713 PO ×2 (17:01→17:23)
[2023-12-26 18:05] VITALS: BP 139/77; TEMP 97.1; O2SAT 95
== END 2023-12-26 18:07 | disposition home or self-care (01) ==
LOC: M SDC 13:58
PROVIDERS: ATTEND Orthopaedic Surgery Hand Surgery
DX: S83.281A Other tear of lateral meniscus, current injury, right knee, initial encounter (principal); I10 Essential (primary) hypertension; D75.839 Thrombocytosis, unspecified; M85.80 Other specified disorders of bone density and structure, unspecified site; Z79.899 Other long term (current) drug therapy
CPT/HCPCS: 29880; C9290; J0131; J0171; J0665; J0690; J1100; J1885; J1920; J2371; J2405; J3010

== ENCOUNTER → 2024-03-06 | Outpatient (CLI) | payer OTHER, MEDICARE ==
[~2024-03-06] MED LIST changes: +ONDA-282 PO; -ONDA4TAB6 PO
== END ==
LOC: M SOG 14:27
PROVIDERS: ATTEND Orthopaedic Surgery
DX: M17.12 Unilateral primary osteoarthritis, left knee (principal); M25.562 Pain in left knee

== ENCOUNTER → 2024-11-17 | Outpatient (CLI) | payer MEDICARE ==
[~2024-11-17] MED LIST changes: -ROSU40TA63 PO; +ROSU40TA81 PO
[2024-11-17 09:57] LABS: ALBUMIN 3.6 G/DL (3.2-5.2); BLOOD UREA NITROGEN 16 MG/DL (9-23); CALCIUM LEVEL 10.8 MG/DL (8.3-10.6); CARBON DIOXIDE LEVEL 29 MMOL/L (20-31); CHLORIDE LEVEL 106 MMOL/L (98-107); CHOLESTEROL LEVEL 172 MG/DL (<200); CHOLESTEROL RISK RATIO 2.93 (<5); CREATININE FOR GFR 0.85 MG/DL (0.55-1.30); GLOMERULAR FILTRATION RATE > 60.0 (>39); GLUCOSE, FASTING 106 MG/DL (74-106); HDL CHOLESTEROL 58.6 MG/DL (>40); LDL CHOLESTEROL 93.8 MG/DL (<100); MAGNESIUM LEVEL 2.1 MG/DL (1.8-2.4); NON-HDL-C 113.4 MG/DL; PHOSPHORUS LEVEL 2.6 MG/DL (2.4-5.1); POTASSIUM SERUM 4.9 MMOL/L (3.5-5.1); SODIUM LEVEL 144 MMOL/L (136-145); TRIGLYCERIDES LEVEL 98 MG/DL (<150)
== END ==
LOC: M LAB 08:26
PROVIDERS: ATTEND Internal Medicine Cardiovascular Disease
DX: I10 Essential (primary) hypertension (principal); I49.3 Ventricular premature depolarization; E78.00 Pure hypercholesterolemia, unspecified

== ENCOUNTER → 2024-11-25 | Outpatient (CLI) | payer MEDICARE | LOC: M CARPUL 10:57 | PROVIDERS: ATTEND Internal Medicine Cardiovascular Disease | DX: R94.31 Abnormal electrocardiogram [ECG] [EKG] (principal); I49.3 Ventricular premature depolarization; R01.2 Other cardiac sounds ==

== ENCOUNTER → 2024-12-06 | Outpatient (CLI) | payer MEDICARE | LOC: M EKG 10:56 | PROVIDERS: ATTEND Internal Medicine Cardiovascular Disease | DX: I49.3 Ventricular premature depolarization (principal) ==